=== PATIENT | female | born 1970 | race Asian ===

== ENCOUNTER → 2020-08-19 15:31 | Outpatient (BNVA) | payer OTHER, SELFPAY | PROVIDERS: PCP Internal Medicine; Visit Provider Obstetrics & Gynecology | DX: N83.202 Unspecified ovarian cyst, left side (principal); N93.9 Abnormal uterine and vaginal bleeding, unspecified | CPT/HCPCS: 99202 ==

== ENCOUNTER 2020-09-06 15:58 | Outpatient (REF) | payer OTHER, SELFPAY ==
--- NOTE | ~2020-09-06 | US_ITS ---
EXAMINATION: PELVIC ULTRASOUND CLINICAL INFORMATION: Left ovarian cyst COMPARISON: Previous exam January 2020 TECHNIQUE: Transabdominal and transvaginal pelvic ultrasound was performed. Transvaginal exam was performed for better visualization of the uterus and ovaries. FINDINGS: The uterus is anteverted and measures 11.4 x 4.6 x 6 cm in dimension. Endometrial thickness is normal measuring 1 cm. The endometrium is heterogeneous appearing. There is a 1.5 x 0.7 x 1.3 cm hyperechoic lesion in the endometrium with central vascularity questionable for an endometrial polyp. There are nabothian cysts in the cervix. The ovaries are normal-appearing. The right ovary measures 2 x 1.1 x 1.6 cm and the left ovary measures 3.4 x 1.6 x 2.2 cm. There is no fluid in the pelvis. US/US transvaginal IMPRESSION: Normal-appearing ovaries. No ovarian cyst seen. Heterogeneous endometrium with question of an endometrial polyp.
--- NOTE | ~2020-09-06 | US_ITS ---
EXAMINATION: PELVIC ULTRASOUND CLINICAL INFORMATION: Left ovarian cyst COMPARISON: Previous exam January 2020 TECHNIQUE: Transabdominal and transvaginal pelvic ultrasound was performed. Transvaginal exam was performed for better visualization of the uterus and ovaries. FINDINGS: The uterus is anteverted and measures 11.4 x 4.6 x 6 cm in dimension. Endometrial thickness is normal measuring 1 cm. The endometrium is heterogeneous appearing. There is a 1.5 x 0.7 x 1.3 cm hyperechoic lesion in the endometrium with central vascularity questionable for an endometrial polyp. There are nabothian cysts in the cervix. The ovaries are normal-appearing. The right ovary measures 2 x 1.1 x 1.6 cm and the left ovary measures 3.4 x 1.6 x 2.2 cm. There is no fluid in the pelvis. US/US pelvic complete IMPRESSION: Normal-appearing ovaries. No ovarian cyst seen. Heterogeneous endometrium with question of an endometrial polyp.
== END 2020-09-06 15:59 | disposition home or self-care (01) ==
LOC: HO.US 15:58
PROVIDERS: Visit Provider Obstetrics & Gynecology
DX: N83.202 Unspecified ovarian cyst, left side (principal)
CPT/HCPCS: 76830; 76856

== ENCOUNTER → 2020-09-14 11:10 | Outpatient (BNVA) | payer OTHER, SELFPAY | PROVIDERS: PCP Internal Medicine; Visit Provider Obstetrics & Gynecology | DX: N84.0 Polyp of corpus uteri (principal) | CPT/HCPCS: Q3014 ==

== ENCOUNTER 2021-05-26 14:34 | Outpatient (REF) | payer OTHER, SELFPAY ==
[2021-05-26 16:35] LABS: Mean Corpuscular Volume 79.2 fL (80.0-98.0); SCAN SMEAR FLAG 1
[2021-05-26 16:36] LABS: Basophils Absolute Auto 0.1 X10*3/uL (0.0-0.2); Eosinophils Absolute Auto 0.5 X10*3/uL (0.0-0.4); Eosinophils Percent Auto 6.6 % (0-4); Hematocrit 35.9 % (37.0-47.0); Hemoglobin 11.2 g/dl (12.0-16.0); Imm Gran Abs Auto 0.02 X10*3/uL (0.00-0.03); Imm Gran Pct Auto 0.2 % (0.0-0.4); Lymphocytes Absolute Auto 2.7 X10*3/uL (1.2-4.9); Lymphocytes Percent Auto 33.4 % (20-40); MANUAL DIFF FLAG SCAN; Mean Corpuscular HGB Conc 31.2 g/dl (31.0-35.0); Mean Corpuscular Hemoglobin 24.7 pg (27.0-33.0); Monocytes Absolute Auto 0.7 X10*3/uL (0.1-1.2); Monocytes Percent Auto 8.3 % (2-11); Neutrophils Absolute Auto 4.1 x10*3/uL (2.0-8.3); Neutrophils Percent Auto 50.5 % (45-73); Platelet Count 269 X10*3/uL (160-400); Red Blood Count 4.53 X10*6/uL (4.20-5.50); Red Cell Distribution Width 17.4 % (11.0-16.0); White Blood Count 8.1 X10*3/uL (4.8-10.8)
[2021-05-26 16:48] LABS: PLT ABN DIST 1
[2021-05-26 16:52] LABS: SLIDE REVIEW VERIFIED
[2021-05-26 17:00] LABS: Iron 28 mcg/dL (30-160); Percent Iron Saturation 6 % (15-50); Total Iron Binding Capacity 481 mcg/dL (228-428); Unsaturated Iron Binding 453 ug/dL
== END 2021-05-26 14:35 | disposition home or self-care (01) ==
LOC: HO.HMGCLDS 14:34
PROVIDERS: PCP Internal Medicine; Visit Provider Internal Medicine
DX: D50.9 Iron deficiency anemia, unspecified (principal)
CPT/HCPCS: 36415; 83540; 85025

== ENCOUNTER 2021-08-21 14:45 | Outpatient (REF) | payer OTHER, SELFPAY ==
[2021-08-21 17:08] LABS: Thyroid Stimulating Hormone 3.93 uIU/mL (0.32-4.0)
[2021-08-21 17:14] LABS: Basophils Absolute Auto 0.1 X10*3/uL (0.0-0.2); Eosinophils Absolute Auto 0.6 X10*3/uL (0.0-0.4); Eosinophils Percent Auto 7.9 % (0-4); Hematocrit 30.9 % (37.0-47.0); Hemoglobin 9.6 g/dl (12.0-16.0); Imm Gran Abs Auto 0.01 X10*3/uL (0.00-0.03); Imm Gran Pct Auto 0.1 % (0.0-0.4); Lymphocytes Percent Auto 28.5 % (20-40); MANUAL DIFF FLAG SCAN; Mean Corpuscular HGB Conc 31.1 g/dl (31.0-35.0); Mean Corpuscular Hemoglobin 23.4 pg (27.0-33.0); Mean Corpuscular Volume 75.4 fL (80.0-98.0); Mean Platelet Volume 11.9 fL (9.4-12.3); Monocytes Absolute Auto 0.5 X10*3/uL (0.1-1.2); Monocytes Percent Auto 6.5 % (2-11); Platelet Count 318 X10*3/uL (160-400); SCAN SMEAR FLAG 1; White Blood Count 7.1 X10*3/uL (4.8-10.8)
[2021-08-21 17:16] LABS: PLT ABN DIST 1
[2021-08-21 17:18] LABS: SLIDE REVIEW VERIFIED
== END 2021-08-21 14:46 | disposition home or self-care (01) ==
LOC: HO.HMGCLDS 14:45
PROVIDERS: PCP Internal Medicine; Visit Provider Obstetrics & Gynecology
DX: N93.8 Other specified abnormal uterine and vaginal bleeding (principal)
CPT/HCPCS: 36415; 84443; 85025

== ENCOUNTER 2022-03-03 14:29 | Outpatient (REF) | payer OTHER, SELFPAY ==
[2022-03-03 16:23] LABS: MANUAL DIFF FLAG NO
[2022-03-03 16:25] LABS: Basophils Absolute Auto 0.1 X10*3/uL (0.0-0.2); Imm Gran Abs Auto 0.02 X10*3/uL (0.00-0.03); Imm Gran Pct Auto 0.3 % (0.0-0.4); SCAN SMEAR FLAG 1
[2022-03-03 16:27] LABS: Eosinophils Absolute Auto 0.4 X10*3/uL (0.0-0.4); Eosinophils Percent Auto 6.9 % (0-4); Hematocrit 36.7 % (37.0-47.0); Hemoglobin 11.3 g/dl (12.0-16.0); Lymphocytes Absolute Auto 2.2 X10*3/uL (1.2-4.9); Lymphocytes Percent Auto 35.6 % (20-40); Mean Corpuscular HGB Conc 30.8 g/dl (31.0-35.0); Mean Corpuscular Hemoglobin 23.3 pg (27.0-33.0); Mean Corpuscular Volume 75.7 fL (80.0-98.0); Monocytes Absolute Auto 0.5 X10*3/uL (0.1-1.2); Monocytes Percent Auto 7.7 % (2-11); Neutrophils Percent Auto 48.5 % (45-73); Platelet Count 245 X10*3/uL (160-400); Red Blood Count 4.85 X10*6/uL (4.20-5.50); White Blood Count 6.2 X10*3/uL (4.8-10.8)
[2022-03-03 16:30] LABS: PLT ABN DIST 1
[2022-03-03 16:41] LABS: Iron 35 mcg/dL (30-160); Percent Iron Saturation 8 % (15-50); Total Iron Binding Capacity 450 mcg/dL (228-428); Unsaturated Iron Binding 415 ug/dL
[2022-03-03 17:04] LABS: TSH reflex Free T4 3.19 uIU/mL (0.32-4.0); Vitamin D 25-OH Total 16.3 ng/mL (>30)
[2022-03-03 17:19] LABS: Folate 17.5 ng/mL (> or = 4.0); Vitamin B12 323 pg/mL (200-900)
== END 2022-03-03 14:30 | disposition home or self-care (01) ==
LOC: HO.HMGCLDS 14:29
PROVIDERS: PCP Internal Medicine; Visit Provider Internal Medicine
DX: D50.9 Iron deficiency anemia, unspecified (principal); R53.83 Other fatigue
CPT/HCPCS: 36415; 82306; 82607; 82746; 83540; 84443; 85025

== ENCOUNTER 2022-09-17 14:27 | Outpatient (REF) | payer OTHER, SELFPAY ==
[2022-09-17 16:14] LABS: MANUAL DIFF FLAG NO
[2022-09-17 16:28] LABS: Basophils Absolute Auto 0.1 X10*3/uL (0.0-0.2); Basophils Percent Auto 0.8 % (0-2); Eosinophils Absolute Auto 0.4 X10*3/uL (0.0-0.4); Eosinophils Percent Auto 6.1 % (0-4); Hemoglobin 9.5 g/dl (12.0-16.0); Imm Gran Abs Auto 0.01 X10*3/uL (0.00-0.03); Imm Gran Pct Auto 0.2 % (0.0-0.4); Lymphocytes Absolute Auto 2.2 X10*3/uL (1.2-4.9); Lymphocytes Percent Auto 35.2 % (20-40); Mean Corpuscular HGB Conc 29.7 g/dl (31.0-35.0); Mean Corpuscular Hemoglobin 21.1 pg (27.0-33.0); Mean Platelet Volume 11.5 fL (9.4-12.3); Monocytes Absolute Auto 0.5 X10*3/uL (0.1-1.2); Monocytes Percent Auto 7.4 % (2-11); Neutrophils Absolute Auto 3.1 x10*3/uL (2.0-8.3); Neutrophils Percent Auto 50.3 % (45-73); Platelet Count 337 X10*3/uL (160-400); Red Blood Count 4.51 X10*6/uL (4.20-5.50); Red Cell Distribution Width 18.2 % (11.0-16.0); White Blood Count 6.1 X10*3/uL (4.8-10.8)
[2022-09-17 16:40] LABS: Alanine Aminotransferase 10 U/L (0-31); Aspartate Amino Transferase 13 U/L (5-31); Cholesterol 200 mg/dL; HDL Cholesterol 36 mg/dL; Iron 24 mcg/dL (30-160); LDL Cholesterol Calculated 125 mg/dl; Percent Iron Saturation 6 % (15-50); Total Iron Binding Capacity 393 mcg/dL (228-428); Triglycerides 197 mg/dL; Unsaturated Iron Binding 369 ug/dL
[2022-09-17 16:55] LABS: Vitamin D 25-OH Total 34.6 ng/mL (>30)
== END 2022-09-17 14:28 | disposition home or self-care (01) ==
LOC: HO.HMGCLDS 14:27
PROVIDERS: PCP Internal Medicine; Visit Provider Internal Medicine
DX: Z00.01 Encounter for general adult medical examination with abnormal findings (principal); D50.9 Iron deficiency anemia, unspecified; E55.9 Vitamin D deficiency, unspecified
CPT/HCPCS: 36415; 80061; 82306; 83540; 84450; 84460; 85025

== ENCOUNTER 2022-11-05 15:24 | Outpatient (REF) | payer OTHER, SELFPAY ==
--- NOTE | ~2022-11-05 | MM_ITS ---
EXAMINATION: MM SCREENING DIGITAL BREAST TOMOSYNTHESIS, BILATERAL CLINICAL INFORMATION: Screening. Asymptomatic. The lifetime risk of breast cancer based on the Tyrer-Cuzick Model is 11%. COMPARISON: Mammography: 03/17/2018, 03/07/2017, 10/06/2015 TECHNIQUE: Digital breast tomosynthesis is performed in both the craniocaudal and mediolateral oblique views along with computer-aided detection (CAD). Synthesized 2D images are generated from the tomosynthesis. FINDINGS: The breasts are heterogeneously dense, which may obscure small masses (ACR BI-RADS breast composition Category c). There are no significant masses, abnormal calcifications, or other abnormalities. Parenchymal pattern is similar to prior studies. There is no developing density or architectural abnormality. The axilla and skin contours are unremarkable. No significant changes. MM/MM tomosynthesis screening BI IMPRESSION: No mammographic evidence of malignancy. ASSESSMENT: BI-RADS 1: Negative RECOMMENDATION: Routine annual mammography screening. This patient's information was entered into a reminder system with a target due date for their next mammogram.
== END 2022-11-05 15:25 | disposition home or self-care (01) ==
LOC: HO.MAMMO 15:24
PROVIDERS: PCP Internal Medicine; Visit Provider Internal Medicine
DX: Z12.31 Encounter for screening mammogram for malignant neoplasm of breast (principal)
CPT/HCPCS: 77063; 77067

== ENCOUNTER 2023-01-01 15:01 | Outpatient (REF) | payer OTHER, SELFPAY ==
[2023-01-01 16:07] LABS: MANUAL DIFF FLAG NO
[2023-01-01 17:07] LABS: Iron 30 mcg/dL (30-160); Percent Iron Saturation 6 % (15-50); Total Iron Binding Capacity 462 mcg/dL (228-428); Unsaturated Iron Binding 432 ug/dL
[2023-01-01 17:11] LABS: Basophils Absolute Auto 0.1 X10*3/uL (0.0-0.2); Eosinophils Absolute Auto 0.4 X10*3/uL (0.0-0.4); Eosinophils Percent Auto 5.6 % (0-4); Hematocrit 33.8 % (37.0-47.0); Hemoglobin 10.1 g/dl (12.0-16.0); Imm Gran Abs Auto 0.01 X10*3/uL (0.00-0.03); Imm Gran Pct Auto 0.1 % (0.0-0.4); Lymphocytes Absolute Auto 2.2 X10*3/uL (1.2-4.9); Lymphocytes Percent Auto 32.6 % (20-40); Mean Corpuscular HGB Conc 29.9 g/dl (31.0-35.0); Mean Corpuscular Hemoglobin 21.2 pg (27.0-33.0); Mean Platelet Volume 12.5 fL (9.4-12.3); Monocytes Absolute Auto 0.4 X10*3/uL (0.1-1.2); Monocytes Percent Auto 5.9 % (2-11); Neutrophils Absolute Auto 3.7 x10*3/uL (2.0-8.3); Neutrophils Percent Auto 54.8 % (45-73); Platelet Count 331 X10*3/uL (160-400); Red Blood Count 4.76 X10*6/uL (4.20-5.50); Red Cell Distribution Width 17.7 % (11.0-16.0); White Blood Count 6.8 X10*3/uL (4.8-10.8)
== END 2023-01-01 15:02 | disposition home or self-care (01) ==
LOC: HO.HMGCLDS 15:01
PROVIDERS: PCP Internal Medicine; Visit Provider Internal Medicine
DX: D50.9 Iron deficiency anemia, unspecified (principal)
CPT/HCPCS: 36415; 83540; 85025

== ENCOUNTER 2023-05-17 14:37 | Outpatient (AMB) | payer OTHER, SELFPAY ==
[2023-05-17 15:25] VITALS: BP 120/78; PULSE 93; TEMP 36.3; O2SAT 99; BMI 27.1
--- NOTE | 2023-05-17 15:25 | AM.OFFWIN_ITS ---
Intake Vital Signs 05/17/23 15:25 Height 5 ft 3 in Weight 153 lb BMI 27.1 BP 120/78 Blood Pressure Location Rt brachial Position Sitting Pulse 93 Pulse Source Pulse Oximeter Temp 97.3 F Temp Source Temporal Artery Scan Pulse Oximetry (%) 99 Oxygen Delivery Method Room Air Intake Visit Reasons: EP, pain in tongue Intake Note: PT is here today for pain in tongue started 1 month ago Patient Tobacco Use Status: Never used Tobacco Allergies codeine Adverse Reaction (Unknown, Verified 05/17/23 15:26) Palpitations Do you need a note to return to daycare/school/sports/work: No HPI HPI Comments History of Present Illness Details This is a 53-year-old female who presents to the office today for sick visit. Patient complaining of pain and lesion of her tongue. patient states this has been going on for 1-2 months, but has been worsening. She denies any sore throat or difficulty swallowing. [facility] Medical History (Updated 08/30/22 @ 15:05 by Rose Victoria MD) Vitamin D deficiency History of abnormal uterine bleeding Right anterior knee pain Contact dermatitis Iron (Fe) deficiency anemia Dermatitis Nabothian cyst Surgical History History of hysteroscopy History of section Family History Father CVD (cardiovascular disease) Myocardial infarction Mother Diabetes mellitus Hyperlipidemia Son No problems noted. Social History Housing: Apartment Alcohol intake: never Patient Tobacco Use Status: Never used Tobacco e-Cigarette/Vaping Use: Never Used service: No Current occupational status: unemployed Gender identity: Female Cognitive needs: No Hearing needs: No Vision needs: No Review of Systems Const All systems reviewed & are unremarkable except as noted in HPI and below Reports no additional complaints Eyes Reports no additional complaints ENT Reports no additional complaints Card Reports no additional complaints Resp Reports no additional complaints GI Reports no additional complaints Reports no additional complaints Musc Reports no additional complaints Skin/Breast Reports system reviewed and no additional complaints, except as documented Neuro Reports no additional complaints Psych Reports no additional complaints Endo Reports no additional complaints Jonatan/Lymph Reports no additional complaints Aller/Immun Reports no additional complaints Physical Exam Vital Signs: Last Vital Signs Temp 97.3 F 05/17/23 15:25 Pulse 93 05/17/23 15:25 BP 120/78 05/17/23 15:25 Pulse Ox 99 05/17/23 15:25 Oxygen Delivery Method Room Air 05/17/23 15:25 BMI result Body Mass Index 27.1 Const Other: Vital signs reviewed. Constitutional: Non-toxic appearing. No acute distress. Well-developed and well-nourished. HEENT: Normocephalic and atraumatic. There is white plaque covering the entire tongue with the exception of one clear area on the tip of her tongue. Skin: Warm and dry. No rashes or lesions noted. Neck: Full and painless range of motion. No cervical lymphadenopathy. Cardio: Regular rate. No lower extremity edema. No JVD. Pulmonary: No respiratory distress. No accessory muscle usage. Gastrointestinal: Soft, nontender, and nondistended in all 4 quadrants. Musculoskeletal: Normal range of motion in joints throughout the body. No defo rmity or other signs of injury. Neuro: Alert and oriented x4. Cranial nerves 2-12 grossly intact. No focal deficits appreciated. Psych: Normal mood and affect. Assessment & Plan Assessment & Plan (1) Oral thrush: Code(s): B37.0 - Candidal stomatitis Plan: This is a 53-year-old female who presents to the office complaining of pain / lesion her tongue. Physical examination, there is a white layer covering the entirety of her tongue with the exception of a small area of clearing on the tip of her tongue. 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 She denies any inhaled steroid use. Patient sent home on nystatin swish and spit. She was instructed to follow-up here or proceed to the emergency room for persistent/ worsening symptoms. Patient verbalizes her understanding and she is in agreement with plan. Medications: New nystatin swish and swallow 1 mL PO DAILY 60 mL 0RF Coding Level of Care Code Est Pt Level 3 (38557) Diagnoses Oral thrush B37.0
== END 2023-05-17 15:42 | disposition home or self-care (01) ==
PROVIDERS: PCP Internal Medicine; Visit Provider Physician Assistant Medical
DX: B37.0 Candidal stomatitis (principal)
CPT/HCPCS: 99213

== ENCOUNTER 2023-07-02 14:33 | Outpatient (AMB) | payer OTHER, SELFPAY ==
--- NOTE | 2023-07-02 14:39 | AM.OFFWIN_ITS ---
Intake Vital Signs 07/02/23 14:42 Height 5 ft 3 in Weight 150 lb 4 oz BMI 26.6 BP 120/60 Blood Pressure Location Rt brachial Position Sitting Pulse 110 H Pulse Source Pulse Oximeter Temp 98 F Temp Source Temporal Artery Scan Oxygen Delivery Method Room Air Intake Visit Reasons: EP, cough, fever ([phone]) Intake Note: Pt is here c/o bad cough and fever. Patient Tobacco Use Status: Never used Tobacco Allergies codeine Adverse Reaction (Unknown, Verified 07/02/23 14:39) Palpitations Do you need a note to return to daycare/school/sports/work: No HPI HPI Comments History of Present Illness Details Patient is a 53-year-old female in today for a sick visit. She states that over the past 2 days she has developed symptoms of cough, headache, sore throat, chest congestion. Her at home is sick with similar symptoms. She has taken Motrin with some relief. States she had a fever of 103 degrees the night prior to this appointment. States her cough gets worse at night. Denies dizziness, chest pain, shortness a breath, numbness, vomiting, diarrhea. [facility] Medical History (Updated 07/02/23 @ 15:32 by ESTELLE Kwan) Vitamin D deficiency History of abnormal uterine bleeding Right anterior knee pain Contact dermatitis Iron (Fe) deficiency anemia Dermatitis Nabothian cyst Surgical History History of hysteroscopy History of section Family History Father CVD (cardiovascular disease) Myocardial infarction Mother Diabetes mellitus Hyperlipidemia Son No problems noted. Social History Housing: Apartment Alcohol intake: never Patient Tobacco Use Status: Never used Tobacco e-Cigarette/Vaping Use: Never Used service: No Current occupational status: unemployed Gender identity: Female Cognitive needs: No Hearing needs: No Vision needs: No Review of Systems Const Details: Constitutional : No Weight loss, Admits Fever, Admits Chills, No Fatigue, No Malaise ENT/Mouth : Admits sore throat, No Rhinorrhea Eyes: No Eye Pain, No Swelling, No Redness Cardiovascular : No Chest Pain, No SOB, No Dyspnea on Exertion, No Orthopnea, No Edema, No Palpitations Respiratory : Admits Cough, No Sputum, No Wheezing Gastrointestinal : No Nausea, No Vomiting, No Diarrhea, No Constipation, No abdominal Pain, No Hematochezia, No Melena Genitourinary : No Dysuria, No Urinary Frequency, No Hematuria, Musculoskeletal : No joint pain, No Myalgias, No Joint Swelling Skin : No Skin Lesions, No rash Neuro : No Weakness, No Numbness, No Dizziness, No Headache Psych : No Anxiety/Panic, No Depression Heme/Lymph: No Bruising, No Bleeding,No Lymphadenopathy Endocrine : No Polyuria, No Polydipsia All other systems reviewed and are negative Physical Exam Vital Signs: Last Vital Signs Temp 98 F 07/02/23 14:42 Pulse 110 H 07/02/23 14:42 BP 120/60 07/02/23 14:42 Pulse Ox 110 H 07/02/23 14:42 Oxygen Delivery Method Room Air 07/02/23 14:42 BMI result Body Mass Index 26.6 Const Other: Appearance: Alert.? Oriented X3.? No acute distress.? Head: Normocephalic, atraumatic, no step-offs or deformities Eyes: Pupils equal, round and reactive to light.? ENT: Pharynx cobblestoned.?TM intact and pearly smith. Neck: Normal inspection.? Neck supple.?Full ROM. CVS: Normal heart rate and rhythm.? Pulses normal.? Respiratory: No respiratory distress.? Breath sounds normal.? Abdomen: Soft and nontender.? Skin: Skin warm and dry.? Normal skin color.? Normal skin turgor.? Neuro: Oriented X 3.? No motor deficit.? No sensory deficit. CN 2-12 intact Results Reviewed Results Reviewed: Will call patient with x-ray results. Assessment & Plan Assessment & Plan (1) Upper respiratory infection: Comment: Patient had chest x-ray. Will get back to her with results. Will prescribe benzos on a Marie and prednisone to be taken as directed. Patient has been educated on signs of worsening symptoms and when to report back to the walk-in or when to present to the emergency room. Patient states she understands Code(s): J06.9 - Acute upper respiratory infection, unspecified Qualifiers: URI type: unspecified URI Qualified Code(s): J06.9 - Acute upper respiratory infection, unspecified Plan: Take your medications as prescribed. If you were prescribed antibiotics today, it is important that you take your medication to their entirety, do not skip any doses, do not finish them early. Follow-up with your primary care provider this week. Return to the emergency department with new or worsening symptoms. Such as fevers, chills, chest pain, shortness of breath, nausea, vomiting, dizziness, headache, vision changes, lethargy In case of emergency call 911 Plan Follow-up with PCP Orders: Orders SARS-CoV2/FLU/RSV Today J06.9 - Acute upper respiratory infection, unspecified XR chest 2V Today R50.9 - Fever, unspecified Medications: New prednisone 20 mg PO BID 10 tabs 0RF benzonatate 100 mg PO BID PRN 30 caps 0RF cough Coding Level of Care Code Est Pt Level 3 (43972) Diagnoses Upper respiratory tract infection, unspecified type J06.9 URI type: unspecified URI Time Spent (min) 20
[2023-07-02 14:42] VITALS: BP 120/60; PULSE 110; TEMP 36.6; BMI 26.6
== END 2023-07-02 16:02 | disposition home or self-care (01) ==
PROVIDERS: PCP Internal Medicine; Visit Provider Nurse Practitioner Primary Care
DX: J06.9 Acute upper respiratory infection, unspecified (principal)
CPT/HCPCS: 99213

== ENCOUNTER 2023-07-02 15:09 | Outpatient (REF) | payer OTHER, SELFPAY ==
--- NOTE | ~2023-07-02 | XR_ITS ---
EXAMINATION: XR CHEST CLINICAL INFORMATION: Fever COMPARISON: None available. TECHNIQUE: 2 views of the chest were obtained. FINDINGS: The lungs are well-expanded and clear of acute process. Heart size and pulmonary vascularity is normal. There is mild dorsal spine spondylosis. XR/XR chest 2V IMPRESSION: No acute cardiopulmonary process seen.
[2023-07-02 17:08] LABS: Influenza A PCR POSITIVE (Negative); Influenza B PCR NEGATIVE (Negative); Resp Syncy Virus RNA Qual PCR NEGATIVE (Negative); SARS COV2 PCR INHOUSE NEGATIVE (Negative)
== END 2023-07-02 15:10 | disposition home or self-care (01) ==
LOC: HO.HMGCX 15:09
PROVIDERS: PCP Internal Medicine; Visit Provider Nurse Practitioner Primary Care
DX: Z11.52 Encounter for screening for COVID-19 (principal); R05.9 Cough, unspecified; J06.9 Acute upper respiratory infection, unspecified
CPT/HCPCS: 0241U; 71046

== ENCOUNTER 2023-07-02 15:11 | Outpatient (REF) | payer OTHER, SELFPAY | END 2023-07-02 15:12 | disposition home or self-care (01) | LOC: HO.LAB 15:11 | PROVIDERS: Visit Provider Nurse Practitioner Primary Care | DX: Z13.89 Encounter for screening for other disorder (principal) ==

== ENCOUNTER 2023-10-01 14:43 | Outpatient (AMB) | payer OTHER, SELFPAY ==
[2023-10-01 14:58] VITALS: BP 118/70; PULSE 85; TEMP 36.6; O2SAT 98; BMI 26.6
--- NOTE | 2023-10-01 14:58 | AM.OFFWIN_ITS ---
Intake Vital Signs 10/01/23 14:58 Height 5 ft 3 in Weight 150 lb BMI 26.6 BP 118/70 Blood Pressure Location Lt brachial Position Sitting Pulse 85 Pulse Source Pulse Oximeter Temp 97.8 F Temp Source Oral Pulse Oximetry (%) 98 Oxygen Delivery Method Room Air Intake Visit Reasons: EP wood piece in lft foot (lobby) Intake Note: pt is here for c/o right foot toes, and had a table topper fall on it a few months ago and is still experiencing pain at night Patient Tobacco Use Status: Never used Tobacco Allergies codeine Adverse Reaction (Unknown, Verified 10/01/23 15:30) Palpitations Medication List - Last Reconciled 10/01/23 by ESTELLE Kwan ferrous fumarate (Ferretts) 325 mg PO DAILY meloxicam 15 mg PO DAILY Do you need a note to return to daycare/school/sports/work: No HPI HPI Comments History of Present Illness Details Patient is a 53-year-old female in today for a sick visit. She states that a wooden part garcia fell on her right toe 3 months prior to visit. Patient states that though she felt pain initially, it has progressively gotten worse over the past 3 months. She is able to ambulate on the affected limb. Has not tried any medication for relief. Denies tingling or numbness, pulses +2. [facility] Medical History (Updated 10/01/23 @ 15:29 by ESTELLE Kwan) Vitamin D deficiency History of abnormal uterine bleeding Right anterior knee pain Contact dermatitis Iron (Fe) deficiency anemia Dermatitis Nabothian cyst Surgical History History of hysteroscopy History of section Family History Father CVD (cardiovascular disease) Myocardial infarction Mother Diabetes mellitus Hyperlipidemia Son No problems noted. Social History Housing: Apartment Alcohol intake: never Patient Tobacco Use Status: Never used Tobacco e-Cigarette/Vaping Use: Never Used service: No Current occupational status: unemployed Gender identity: Female Cognitive needs: No Hearing needs: No Vision needs: No Review of Systems Const All systems reviewed & are unremarkable except as noted in HPI and below Musc Reports arthralgias (Right greater toe 1st metacarpal) and Denies tingling Neuro Denies tingling and Denies paresthesias Physical Exam Vital Signs: Last Vital Signs Temp 97.8 F 10/01/23 14:58 Pulse 85 10/01/23 14:58 BP 118/70 10/01/23 14:58 Pulse Ox 98 10/01/23 14:58 Oxygen Delivery Method Room Air 10/01/23 14:58 BMI result Body Mass Index 26.6 Const Other: Appearance: Alert.? Oriented X3.? No acute distress.? Head: Normocephalic, atraumatic, no step-offs or deformities CVS: Normal heart rate and rhythm.? Pulses normal.? Skin: Erythema over first right metatarsal. ? Extremities: Right greater toe pain to palpation over metatarsal and metatarsophalangeal joint. Full ROM. Neuro: Oriented X 3.? No motor deficit.? No sensory deficit. CN 2-12 intact Assessment & Plan Assessment & Plan (1) Sprain of toe, great, right: Comment: X-ray does not look like fracture on initial read. Will give patient meloxicam. Patient has been instructed to use shoes with better soles and cushion. Instructed to rest affected area. Code(s): S93.501A - Unspecified sprain of right great toe, initial encounter Qualifiers: Encounter type: initial encounter Qualified Code(s): S93.501A - Unspecified sprain of right great toe, initial encounter Plan: Take your medications as prescribed. If you were prescribed antibiotics today, it is important that you take your medication to their entirety, do not skip any doses, do not finish them early. Follow-up with your primary care provider this week. Return to the emergency department with new or worsening symptoms. Such as fevers, chills, chest pain, shortness of breath, nausea, vomiting, dizziness, headache, vision changes, lethargy In case of emergency call 911 Plan Follow-up with PCP if problem does not improve. Orders: Orders XR foot RT min 3V Today M79.671 - Pain in right foot Medications: New meloxicam 15 mg PO DAILY 10 tabs 0RF Coding Level of Care Code Est Pt Level 4 (92651) Diagnoses Sprain of right great toe, initial encounter S93.501A Encounter type: initial encounter Time Spent (min) 26
== END 2023-10-01 15:25 | disposition home or self-care (01) ==
PROVIDERS: PCP Internal Medicine; Visit Provider Nurse Practitioner Primary Care
DX: S93.501A Unspecified sprain of right great toe, initial encounter (principal)
CPT/HCPCS: 99214

== ENCOUNTER 2023-10-01 15:12 | Outpatient (REF) | payer OTHER, SELFPAY ==
--- NOTE | ~2023-10-01 | XR_ITS ---
EXAMINATION: XR FOOT, RIGHT CLINICAL INFORMATION: Pain in the right foot. COMPARISON: None available. TECHNIQUE: AP, lateral, and oblique views of the right foot. FINDINGS: No fracture. No dislocation. No focal bone lesion or periosteal reaction. Moderate joint narrowing of the first metatarsal phalangeal joint. Minor spurring of the metatarsal head of the great toe medially. Large plantar calcaneal spur. XR/XR foot RT min 3V IMPRESSION: 1. No acute abnormality. 2. Moderate degenerative change of the first metatarsophalangeal joint. 3. Large plantar calcaneal spur.
== END 2023-10-01 15:13 | disposition home or self-care (01) ==
LOC: HO.HMGCX 15:12
PROVIDERS: PCP Internal Medicine; Visit Provider Nurse Practitioner Primary Care
DX: M79.671 Pain in right foot (principal)
CPT/HCPCS: 73630

== ENCOUNTER 2023-11-12 15:06 | Outpatient (REF) | payer OTHER, SELFPAY | END 2023-11-12 15:07 | disposition home or self-care (01) | LOC: HO.MAMMO 15:06 | PROVIDERS: PCP Internal Medicine; Visit Provider Internal Medicine | DX: Z12.31 Encounter for screening mammogram for malignant neoplasm of breast (principal) | CPT/HCPCS: 77063; 77067 ==

== ENCOUNTER → 2023-11-12 15:15 | Outpatient (BNV) | payer OTHER, SELFPAY | PROVIDERS: PCP Internal Medicine; Visit Provider Radiology Diagnostic Radiology | DX: Z12.31 Encounter for screening mammogram for malignant neoplasm of breast (principal) | CPT/HCPCS: 77063; 77067 ==

== ENCOUNTER 2024-04-15 09:44 | Outpatient (AMB) | payer OTHER, SELFPAY ==
[2024-04-15 10:06] VITALS: BP 120/70; PULSE 71; O2SAT 99; BMI 26.7
--- NOTE | 2024-04-15 10:06 | A.OFFPC_ITS ---
Vital Signs 04/15/24 10:06 Height 5 ft 3 in Weight 151 lb BMI 26.7 BP 120/70 Blood Pressure Location Rt brachial Position Sitting Pulse 71 Pulse Source Pulse Oximeter Pulse Oximetry (%) 99 Oxygen Delivery Method Room Air Intake Visit Reasons: PE - see comments Intake Note: Pt is here today for her PE: Last mammogram 11/12/23 Is last menstrual period known: Yes Last menstrual period: 04/02/24 Allergies codeine Adverse Reaction (Unknown, Verified 04/15/24 10:31) Palpitations Medication List - Last Reconciled 04/15/24 by Rose Victoria MD ferrous fumarate (Ferretts) 325 mg PO DAILY Tobacco use date assessed: 04/15/24 Dental Screening Dental Screen Date: 04/15/24 Did you have a dental visit in the last 12 months?: Yes Did you have a dental problem in the last 6 months where you did not have access to dental care?: No Was dental information given to patient?: Patient has dentist HPI PE - see comments HPI Details 83-year-old lady here today for physical exam. She is up-to-date with her screening mammogram done at [facility] earlier this year with normal findings. She sees her OBGYN at [facility] for her routine Pap and pelvic exam, diagnosed to have chronic endometritis in 2021 on endometrial biopsy. Has iron deficiency anemia as noted on last lab a year ago, on ferrous fumarate [facility] Medical History (Updated 04/15/24 @ 10:57 by Rose Victoria MD) Impaired fasting glucose Hypertriglyceridemia History of chronic endometritis History of vitamin D deficiency History of abnormal uterine bleeding Contact dermatitis Iron (Fe) deficiency anemia Dermatitis Nabothian cyst Surgical History History of hysteroscopy History of section Family History Father CVD (cardiovascular disease) Myocardial infarction Mother Diabetes mellitus Hyperlipidemia Son No problems noted. Social History Housing: Apartment Alcohol intake: never Patient Tobacco Use Status: Never used Tobacco e-Cigarette/Vaping Use: Never Used service: No Current occupational status: unemployed Gender identity: Female Cognitive needs: No Hearing needs: No Vision needs: No Female Reproductive History Menstrual Date of last menstrual period: 04/02/24 Other: Goes to [facility], sees Dr. Calderon for her routine Pap and pelvic exam. Questionnaire PHQ-9 Over the last 2 weeks, how often have you been bothered by any of the following problems? 1. Little interest or pleasure in doing things: not at all 2. Feeling down, depressed, or hopeless: not at all 3. Trouble falling or staying asleep, or sleeping too much: more than half the days 4. Feeling tired or having little energy: more than half the days 5. Poor appetite or overeating: not at all 6. Feeling bad about yourself - or that you are a failure or have let yourself or your family down: not at all 7. Trouble concentrating on things, such as reading the newspaper or watching television: not at all 8. Moving or speaking so slowly that other people could have noticed. Or the opposite - being so fidgety or restless that you have been moving around a lot more than usual: not at all 9. Thoughts that you would be better off or of hurting yourself in some way: not at all Total score: 4 Depression Screening Interpretation: Negative Depression Screening Done: Yes 39226 - PHQ-9 Billing: Yes Source: Developed by Drs. Jad Baumann, Consuelo Quesada, Merritt Bello and colleagues, with an educational nathanael from [employer]. Thrive Questionnaire Date Thrive assessed: 04/15/24 I am a: Patient What is your living situation today?: I have a steady place to live Within the past 12 months, did the food you bought not last and you didn't have the money to get more?: Never true Within the past 12 months, did you worry whether your food would run out before you got money to buy more?: Never true Do you have trouble paying for medicines?: No Do you have trouble getting transportation to medical appointments?: No Do you have trouble paying your heating and electricity bill?: No Do you have trouble taking care of your child, family member or friend?: No Do you have trouble with day-to-day activities such as bathing, preparing meals, shopping, managing finances, etc.?: No Are you currently unemployed and looking for a job?: No Are you interested in more education?: Yes Please select the resources that you would like help with: Education Currently or been in a relationship where the following occur: No concerns reported THRIVE Score: 0 AUDIT C Alcohol Use Questionnaire (AUDIT-C) 1. How often do you have a drink containing alcohol?: Never Total Score: 0 SURYA-7 AMB Questionnaire SURYA-7 Date SURYA - 7 assessed: 04/15/24 Feeling nervous, anxious, or on edge: 0 = Not at all Not being able to stop or control worryin = Several days Worrying too much about different things: 1 = Several days Trouble relaxin = Several days Being so restless that it is hard to sit still: 0 = Not at all Becoming easily annoyed or irritable: 0 = Not at all Feeling afraid as if something awful might happen: 0 = Not at all Total SURYA-7 score (0-4 normal; 5-9 mild; 10-14 moderate; 15-21 severe): 3 Source: Developed by Drs. Jad Baumann, Consuelo Quesada, Merritt Bello and colleagues, with an educational nathanael from [employer]. SURYA-7 Assessment Billing SURYA-7 Assessment Tool: SURYA-7 Assessment 09458 Review of Systems Const Denies fever(s), Denies headache(s), Denies lethargy and Denies weakness Eyes Reports no additional complaints ENT Denies dizziness, Denies headache(s), Denies nasal congestion, Denies disequilibrium, Denies post nasal drip and Denies throat swelling Card Denies irregular heart rhythm and Denies dyspnea Resp Denies cough and Denies dyspnea GI Reports no additional complaints Details: She sees Dr. Calderon for her routine Pap and pelvic exam, still getting her periods but only last 3 days Reports as per HPI Musc Reports as per HPI, Denies joint swelling, Denies limited range of motion and Denies muscle weakness Skin/Breast Denies breast pain, Denies breast mass and Denies rash Neuro Denies dizziness, Denies headache(s), Denies disequilibrium and Denies weakness Psych Reports no additional complaints Endo Reports no additional complaints Jonatan/Lymph Denies easy bleeding and Denies easy bruising Aller/Immun Reports seasonal rhinorrhea and Denies throat swelling Physical exam (Primary Care) Vital Signs: Last Vital Signs Pulse 71 04/15/24 10:06 BP 120/70 04/15/24 10:06 Pulse Ox 99 04/15/24 10:06 Oxygen Delivery Method Room Air 04/15/24 10:06 BMI result Body Mass Index 26.7 Tobacco/Smoking Status: Tobacco use Status Tobacco use date assessed 04/15/24 04/15/24 10:08 Patient Tobacco Use Status Never used Tobacco 04/15/24 10:08 e-Cigarette/Vaping Use Never Used 04/15/24 10:08 PHQ-9: PHQ-9 Score PHQ-9: Total score 4 04/15/24 10:57 Depression Screening Interpretation: Negative Thrive Assessment: Date of Thrive Assessment Date Thrive assessed 04/15/24 04/15/24 10:23 Currently or been in a relationship where the following occur: No concerns reported Advance Care Planning discussion: Completed/Scanned Date of discussion: 04/15/24 Forms completed: Health Care Proxy Time spent: 16-45 minutes Actual minutes spent: 5 Const Other: alert , oriented x 3 , no acute distress , normal gait Orientation/consciousness: patient oriented x3 HENMT Head: Yes normocephalic and Yes atraumatic Ears: hearing grossly normal bilaterally, TM's normal bilaterally and EAC's normal General nose exam: Normal external nose present and No nasal discharge present Face and sinus: Yes face symmetric Mouth: Normal oral and palatal mucosa present, oropharynx normal and moist mucous membranes Eyes General: appearance normal, both eyes and all related structures Neck Neck: Yes full ROM, Yes no lymphadenopathy and Yes supple Chest Chest palpation & inspection: normal inspection of the chest Breast/axilla palpation: normal palpation of the breasts and normal palpation of the axillae Resp Effort & Inspection: normal respiratory effort and able to speak in complete sentences Auscultation: clear to auscultation bilaterally Cardio Rate: regular rate Rhythm: regular rhythm Heart sounds: S1 normal heart sound present and S2 normal heart sound present GI Inspection: Yes normal to inspection Palpation (GI): Soft to palpation, nontender and no guarding Auscultation: normal bowel sounds General: Yes no CVA tenderness and Yes deferred (Currently being seen by Dr. Calderon) Back/Spine/Pelvis Back: no CVA tenderness and No back tenderness Skin Other: Slightly raised dry hyper pigmented papule rash on right lower abdomen Neuro General: patient oriented x3, gait normal, moves all extremities, Normal light touch and pain sensation, no focal motor deficits and CN's II-XI intact bilaterally Extrem General: Yes full ROM, Yes no joint enlargement, Yes no clubbing, cyanosis or edema and Yes normal gait Psych Appearance: grossly normal and well kempt Mental Status: mental status grossly normal Speech and movement: Normal speech and movement present Affect: normal affect Attitude: cooperative Thought process: Normal thought process present Thought content: Normal thought content present Coding Level of Care Code Est Pt Prev Care 40-64y(85273) Diagnoses Annual visit for general adult medical examination with abnormal findings Z00.01 Iron (Fe) deficiency anemia D50.9 Hypertriglyceridemia E78.1 Impaired fasting glucose R73.01 Advanced directives, counseling/discussion Z71.89 Additional Codes SURYA-7 Assessment Billing - SURYA-7 Assessment Tool: SURYA-7 Assessment 88197 ([id number]) Vital Signs *Quality* - Advance Care Planning discussion: Completed/Scanned ([id number]) Vital Signs *Quality* - Time spent: 16-45 minutes ([id number]) Assessment & Plan Assessment & Plan (1) Annual visit for general adult medical examination with abnormal findings: Code(s): Z00.01 - Encounter for general adult medical examination with abnormal findings Plan: Will check appropriate labs. Recommended dental visit every 6 months and regular eye exams, at least every 2 years. Take adequate calcium in diet and vitamin-D 3 at 2000 IU per cap once a day, in addition to weight-bearing exercises to help maintain good muscle tone and weight control. Instructed to do self-breast exam, and continue to get yearly mammogram, up-to-date with her cervical cancer screening, sees Dr. Calderon at [facility]. Refused colonoscopy procedure but will get Cologuard testing for colon cancer screening. (2) Iron (Fe) deficiency anemia: Code(s): D50.9 - Iron deficiency anemia, unspecified Category: Medical Plan: Ordered CBC, iron profile and TSH with free T4. Continue with ferrous fumarate 55 mg daily. Take with orange juice for better absorption. (3) Hypertriglyceridemia: Code(s): E78.1 - Pure hyperglyceridemia Category: Medical Plan: Repeat fasting lipid panel ordered reinforced importance of following a low- cholesterol diet and getting regular exercise. (4) Impaired fasting glucose: Code(s): R73.01 - Impaired fasting glucose Category: Medical Plan: Fasting blood sugar check ordered, Your previous fasting blood sugars were elevated above 100 mg/dL. Impaired glucose metabolism increases the risk for developing diabetes mellitus type 2, as well as heart attack and stroke later on. Lifestyle changes that promotes weight loss, healthy eating habits, and regular exercise are important, and can prevent the progression to diabetes (5) Advanced directives, counseling/discussion: Code(s): Z71.89 - Other specified counseling Plan: Initiated the conversation about Advanced Directives. Advanced Directives help patients prepare for current and future decisions about their medical treatment and place of care. Discussed with patient that it is a process where a patients current condition and prognosis are reviewed, their wishes for information regarding their illness are elicited, and likely medical dilemmas are presented and options discussed. Healthcare proxy form completed today The form can be amended as needed, reviewed yearly and make changes as needed Orders: Orders Vitamin D 25-OH Total 04/15/24 D50.9 - Iron deficiency anemia, unspecified, E78.1 - Pure hyperglyceridemia, R73.01 - Impaired fasting glucose, Z00.01 - Encounter for general adult medical examination with abnormal findings Basic Metabolic Panel Fasting 04/15/24 D50.9 - Iron deficiency anemia, unspecified, E78.1 - Pure hyperglyceridemia, R73.01 - Impaired fasting glucose, Z00.01 - Encounter for general adult medical examination with abnormal findings Alanine Aminotransferase 04/15/24 D50.9 - Iron deficiency anemia, unspecified, E78.1 - Pure hyperglyceridemia, R73.01 - Impaired fasting glucose, Z00.01 - Encounter for general adult medical examination with abnormal findings Aspartate Amino Transferase 04/15/24 D50.9 - Iron deficiency anemia, unspecified, E78.1 - Pure hyperglyceridemia, R73.01 - Impaired fasting glucose, Z00.01 - Encounter for general adult medical examination with abnormal findings TSH reflex Free T4 04/15/24 D50.9 - Iron deficiency anemia, unspecified, E78.1 - Pure hyperglyceridemia, R73.01 - Impaired fasting glucose, Z00.01 - Encounter for general adult medical examination with abnormal findings Hemoglobin A1c 04/15/24 D50.9 - Iron deficiency anemia, unspecified, E78.1 - Pure hyperglyceridemia, R73.01 - Impaired fasting glucose, Z00.01 - Encounter for general adult medical examination with abnormal findings Complete Blood Count Auto Diff 04/15/24 D50.9 - Iron deficiency anemia, unspecified, E78.1 - Pure hyperglyceridemia, R73.01 - Impaired fasting glucose, Z00.01 - Encounter for general adult medical examination with abnormal findings IRON PROFILE 04/15/24 D50.9 - Iron deficiency anemia, unspecified, E78.1 - Pure hyperglyceridemia, R73.01 - Impaired fasting glucose, Z00.01 - Encounter for general adult medical examination with abnormal findings Lipid Panel 04/15/24 D50.9 - Iron deficiency anemia, unspecified, E78.1 - Pure hyperglyceridemia, R73.01 - Impaired fasting glucose, Z00.01 - Encounter for general adult medical examination with abnormal findings Referrals Cologuard Test Z12.11 - Encounter for screening for malignant neoplasm of colon, Z12.12 - Encounter for screening for malignant neoplasm of rectum
== END 2024-04-15 12:37 | disposition home or self-care (01) ==
LOC: HO.HMCC 09:44
PROVIDERS: PCP Internal Medicine; Visit Provider Internal Medicine
DX: Z00.01 Encounter for general adult medical examination with abnormal findings (principal); D50.9 Iron deficiency anemia, unspecified; E78.1 Pure hyperglyceridemia; R73.01 Impaired fasting glucose; Z71.89 Other specified counseling; Z00.00 Encounter for general adult medical examination without abnormal findings

== ENCOUNTER → 2024-04-15 09:44 | Outpatient (BNVA) | payer OTHER, SELFPAY | PROVIDERS: PCP Internal Medicine; Visit Provider Internal Medicine | DX: Z00.01 Encounter for general adult medical examination with abnormal findings (principal); D50.9 Iron deficiency anemia, unspecified; E78.1 Pure hyperglyceridemia; R73.01 Impaired fasting glucose; Z71.89 Other specified counseling | CPT/HCPCS: 96127 ==

== ENCOUNTER 2024-04-22 15:40 | Outpatient (REF) | payer OTHER, SELFPAY ==
[2024-04-23 11:29] LABS: Influenza A PCR NEGATIVE (Negative); Influenza B PCR NEGATIVE (Negative); Resp Syncy Virus RNA Qual PCR NEGATIVE (Negative); SARS COV2 PCR INHOUSE NEGATIVE (Negative)
== END 2024-04-22 15:41 | disposition home or self-care (01) ==
LOC: HO.LAB 15:40
PROVIDERS: PCP Internal Medicine; Visit Provider Physician Assistant
DX: J06.9 Acute upper respiratory infection, unspecified (principal)
CPT/HCPCS: 0241U

== ENCOUNTER → 2024-04-22 15:40 | Outpatient (AMB) | payer OTHER, SELFPAY ==
--- NOTE | 2024-04-22 16:02 | MHC.OFFWIV ---
Intake Vital Signs 04/22/24 16:04 Weight 151 lb BP 120/78 Blood Pressure Location Rt brachial Position Sitting Pulse 88 Pulse Source Pulse Oximeter Temp 98 F Temp Source Oral Pulse Oximetry (%) 98 Oxygen Delivery Method Room Air Intake Visit Reasons: EP congestion in chest, sinus congestion Intake Note: Patient here for cough, chest congestion, fever and breathing heavy. Patient Tobacco Use Status: Never used Tobacco Allergies codeine Adverse Reaction (Unknown, Verified 04/22/24 16:03) Palpitations Do you need a note to return to daycare/school/sports/work: No HPI HPI Comments History of Present Illness Details Patient is a 53-year-old female complaining of 2 days of a runny nose, chest congestion a productive cough with white sputum and some shortness of breath with exertion. She denies any head congestion, sinus pain, ear pain, fevers, shortness of breath at rest or wheezing. She is able to eat and drink normally. She did not test at home for COVID. She has been gargling using steam and taking cough drops to try to treat her symptoms. She denies a history of asthma or COPD. She tells me that she went to the hospital to visit her mother and while she was there, she did not realize it but her [id number]-[id number] and bvtsll-yx-ktk were both sick with viral upper respiratory infections and she thinks that she might have caught it from them. [facility] Medical History (Updated 04/22/24 @ 16:24 by Octavia Cavazos PA-C) Impaired fasting glucose Hypertriglyceridemia History of chronic endometritis History of vitamin D deficiency History of abnormal uterine bleeding Contact dermatitis Iron (Fe) deficiency anemia Dermatitis Nabothian cyst Surgical History History of hysteroscopy History of section Family History Father CVD (cardiovascular disease) Myocardial infarction Mother Diabetes mellitus Hyperlipidemia Son No problems noted. Social History Housing: Apartment Alcohol intake: never Patient Tobacco Use Status: Never used Tobacco e-Cigarette/Vaping Use: Never Used service: No Current occupational status: unemployed Gender identity: Female Cognitive needs: No Hearing needs: No Vision needs: No Review of Systems Const All systems reviewed & are unremarkable except as noted in HPI and below Physical Exam Vital Signs: Last Vital Signs Temp 98 F 04/22/24 16:04 Pulse 88 04/22/24 16:04 BP 120/78 04/22/24 16:04 Pulse Ox 98 04/22/24 16:04 Oxygen Delivery Method Room Air 04/22/24 16:04 Const General: cooperative, healthy appearing, comfortable and no acute distress Orientation/consciousness: patient oriented x3 Limitations: no limitations HEENT Head: Yes normal to inspection Ears: hearing grossly normal bilaterally, external ears normal and TM's normal bilaterally General nose exam: Normal external nose present, Normal nares present and No nasal discharge present Face and sinus: Yes normal facial exam and Yes sinuses nontender Mouth: Normal oral and palatal mucosa present and moist mucous membranes Throat: Yes tonsils normal, Yes uvula midline and Yes posterior oropharynx abnormal (Erythema) Eyes General: appearance normal, both eyes and all related structures Neck Neck: Yes normal visual inspection Resp Effort & Inspection: normal respiratory effort, able to speak in complete sentences, Actively coughing, no respiratory distress, not tachypneic, no tripod positioning and no use of accessory muscles Auscultation: clear to auscultation bilaterally Cardio Rate: regular rate Rhythm: regular rhythm Heart sounds: normal S1 and S2 Skin General skin exam: no rashes or lesions noted Neuro General: patient oriented x3 Extrem General: Yes normal to inspection and Yes no clubbing, cyanosis or edema Assessment & Plan Assessment & Plan (1) Upper respiratory infection: Code(s): J06.9 - Acute upper respiratory infection, unspecified Qualifiers: URI type: unspecified URI Qualified Code(s): J06.9 - Acute upper respiratory infection, unspecified Plan: Vital signs are stable, patient is well-appearing her lung sounds were clear, no indication for a chest x-ray. I did tested for flu COVID and RSV. And I will send Catherineanivijaya Lanny to her pharmacy. Patient is also asking if I can send some allergy pills so I sent a 1 month supply. Plan See above Orders: Orders SARS-CoV2/FLU/RSV Today J06.9 - Acute upper respiratory infection, unspecified Medications: New benzonatate 200 mg PO TID PRN 14 caps 0RF cough levocetirizine (Xyzal) 5 mg PO DAILY 30 tabs 0RF Coding Level of Care Code Est Pt Level 3 (56492) Diagnoses Upper respiratory tract infection, unspecified type J06.9 URI type: unspecified URI
[2024-04-22 16:04] VITALS: BP 120/78; PULSE 88; TEMP 36.6; O2SAT 98
== END ==
PROVIDERS: PCP Internal Medicine; Visit Provider Physician Assistant
DX: J06.9 Acute upper respiratory infection, unspecified (principal)

== ENCOUNTER 2024-04-30 14:50 | Outpatient (REF) | payer OTHER, SELFPAY ==
[2024-04-30 16:23] LABS: Basophils Absolute Auto 0.1 X10*3/uL (0.0-0.2); Basophils Percent Auto 0.8 % (0-2); Eosinophils Absolute Auto 0.2 X10*3/uL (0.0-0.4); Hematocrit 33.2 % (37.0-47.0); Hemoglobin 10.2 g/dl (12.0-16.0); Imm Gran Abs Auto 0.03 X10*3/uL (0.00-0.03); Imm Gran Pct Auto 0.5 % (0.0-0.4); Lymphocytes Absolute Auto 2.2 X10*3/uL (1.2-4.9); Lymphocytes Percent Auto 35.4 % (20-40); MANUAL DIFF FLAG SCAN; Mean Corpuscular HGB Conc 30.7 g/dl (31.0-35.0); Mean Corpuscular Hemoglobin 21.9 pg (27.0-33.0); Mean Corpuscular Volume 71.2 fL (80.0-98.0); Monocytes Absolute Auto 0.5 X10*3/uL (0.1-1.2); Monocytes Percent Auto 7.5 % (2-11); Neutrophils Absolute Auto 3.3 x10*3/uL (2.0-8.3); Neutrophils Percent Auto 52.8 % (45-73); Platelet Count 323 X10*3/uL (160-400); Red Blood Count 4.66 X10*6/uL (4.20-5.50); Red Cell Distribution Width 18.1 % (11.0-16.0); SCAN SMEAR FLAG 1; White Blood Count 6.2 X10*3/uL (4.8-10.8)
[2024-04-30 16:25] LABS: PLT ABN DIST 1
[2024-04-30 16:36] LABS: Estimated Average Glucose 126 mg/dL; Hemoglobin A1C 111.3918 umol/L; Total Hemoglobin (HGBA1C) 2643.2457 umol/L
[2024-04-30 17:24] LABS: SLIDE REVIEW VERIFIED
[2024-04-30 18:44] LABS: Alanine Aminotransferase 11 U/L (0-31); Anion Gap 10 (12-20); Aspartate Amino Transferase 16 U/L (5-31); Blood Urea Nitrogen 12 mg/dL (9-16); Calcium 8.7 mg/dL (8.4-10.2); Carbon Dioxide 25 mmol/L (22-29); Chloride 107 mmol/L (96-108); Cholesterol 201 mg/dL (<200); Estimated Glomerular Filt Rate > 60; Glucose Fasting 116 mg/dL (60-99); HDL Cholesterol 40 mg/dL (>40); Iron 28 mcg/dL (30-160); LDL Cholesterol Calculated 129 mg/dL (<100); Percent Iron Saturation 8 % (15-50); Sodium 138 mmol/L (135-145); Total Iron Binding Capacity 365 mcg/dL (228-428); Triglycerides 163 mg/dL (<150); Unsaturated Iron Binding 337 ug/dL
[2024-04-30 19:05] LABS: TSH reflex Free T4 3.26 uIU/mL (0.32-4.0); Vitamin D 25-OH Total 30.2 ng/mL (>30)
== END 2024-04-30 14:51 | disposition home or self-care (01) ==
LOC: HO.HMGCLDS 14:50
PROVIDERS: PCP Internal Medicine; Visit Provider Internal Medicine
DX: Z00.01 Encounter for general adult medical examination with abnormal findings (principal); R73.01 Impaired fasting glucose; E78.1 Pure hyperglyceridemia; D50.9 Iron deficiency anemia, unspecified
CPT/HCPCS: 36415; 80048; 80061; 82306; 83036; 83540; 84443; 84450; 84460; 85025

== ENCOUNTER 2024-10-26 15:57 | Outpatient (AMB) | payer OTHER, SELFPAY ==
--- OUTSIDE RECORDS SUMMARY | 2024-10-26 15:59 | XMS_ITS | Patient Health Record ---
Author Organization [facility] Address [address] [place] [address] Care Team Providers Care Dean Of Student Services Name Role Phone DANIEL COLINDRES Primary Care Provider PIA Carpenter Unavailable [phone] Allergies No Known Allergies Reason For Referral No Information Medications Medication SIG (Take, Route, Frequency, Duration) Notes Start Date End Date Status Mary Esther-3 Fish oil 2000 mg Active Fluocinonide 0.1 % 1 application Externally Once a day for 15 days 01/17/2023 Active Ferretts 325 (106 Fe) MG 1 tablet Orally Three times a Week Active Tacrolimus 0.1 % 1 application Externally Once a day for 30 days 01/17/2023 Active Vitamin D3 1.25 MG (24022 UT) 1 capsule Orally Active Tacrolimus 0.1 % 1 application Externally Once a day for 30 day(s) Active Fluocinonide 0.1 % 1 application Externally Once a day Active Social History Tobacco Use: Social History Observation Description Date Details (start date - stop date) Never Smoker NA - NA Smoking: Question Answer Notes Are you a: nonsmoker Problems Problem Type SNOMED Code ICD Code Onset Dates Problem Status W/U Status Risk Notes Problem Allergic rhinitis (58268434) Other allergic rhinitis (J30.89) Active confirmed Problem Eruption of skin (538080977) Rash and other nonspecific skin eruption (R21) Active confirmed Plan Of Treatment No Information Insurance Providers Payer Name Payer Address Payer Phone Subscriber Number Group Number Insured Name Patient Relationship to Insured Coverage Start Date Coverage End Date [facility] [address] [place] [id number] FINA ALBARADO Self - patient is the insured Medical (General) History Medical History History ICD Code low iron deficiency anemia Surgical History Surgery Date(Month/Year) Uterine polyp removal 10/2021
--- NOTE | 2024-10-26 16:00 | AM.OFFWIN_ITS ---
Intake Vital Signs 10/26/24 16:01 Weight 154 lb BP 116/70 Blood Pressure Location Rt brachial Position Sitting Pulse 82 Pulse Source Pulse Oximeter Pulse Oximetry (%) 99 Oxygen Delivery Method Room Air Intake Visit Reasons: EP mouth sores under the tongue Intake Note: Patient here for mouth sore in mouth that started about 2 days ago. Patient Tobacco Use Status: Never used Tobacco Allergies codeine Adverse Reaction (Unknown, Verified 10/26/24 16:02) Palpitations Do you need a note to return to daycare/school/sports/work: No HPI HPI Comments History of Present Illness Details History of Present Illness - The patient is a 54 year old female pr esenting with a mouth ulcer - She developed a sore in the mouth two to three days earlier, potentially due to a cut, resulting in pain and fever with tmax 99.9F. - Persistent pain despite warm saltwater gargling, folic acid, and Tylenol usage. - Examination revealed a painful ulcer o n the left side of the tongue, hampering speech and eating. - Recurrent episodes reported, possibly associated with nighttime tongue biting. - Previous dental intervention with a [facility] guard was uncomfortable and ineffective for the patient. - Denies any swelling in the throat. Physical Exam General: Cooperative, healthy appearing, comfortable, no acute distress and well developed Orientation: Patient oriented x3 Limitations: No limitations Head: Normal to inspection Ears: Hearing grossly normal bilaterally Nose: Normal External nose present Face and sinus: Normal facial exam Mouth: normal oral mucosa, tongue has a small ulcer on left lateral side, no tongue swelling, posterior oropharynx is normal, teeth are normal appearing. Eyes: Appearance normal, both eyes and all related structures Neck: Normal visual inspection and Yes full ROM Respiratory: Normal respiratory effort and able to speak in complete sentences. Skin: No rashes or lesions noted Neuro: Patient oriented x3 Extremities: Normal to inspection [facility] Medical History (Updated 10/26/24 @ 16:22 by Octavia Cavazos PA-C) Impaired fasting glucose Hypertriglyceridemia History of chronic endometritis History of vitamin D deficiency History of abnormal uterine bleeding Contact dermatitis Iron (Fe) deficiency anemia Dermatitis Nabothian cyst Surgical History History of hysteroscopy History of section Family History Father CVD (cardiovascular disease) Myocardial infarction Mother Diabetes mellitus Hyperlipidemia Son No problems noted. Social History Housing: Apartment Alcohol intake: never Patient Tobacco Use Status: Never used Tobacco e-Cigarette/Vaping Use: Never Used service: No Current occupational status: unemployed Gender identity: Female Cognitive needs: No Hearing needs: No Vision needs: No Review of Systems Const All systems reviewed & are unremarkable except as noted in HPI and below Physical Exam Vital Signs: Last Vital Signs Pulse 82 10/26/24 16:01 BP 116/70 10/26/24 16:01 Pulse Ox 99 10/26/24 16:01 Oxygen Delivery Method Room Air 10/26/24 16:01 Assessment & Plan Assessment & Plan (1) Aphthous ulcer: Code(s): K12.0 - Recurrent oral aphthae Plan: The management for aphthous stomatitis involves prescribing a dexamethasone oral elixir swish to reduce inflammation and pain, to be used three times daily or increased to four times if pain persists at night. This aims to provide symptomatic relief and hasten ulcer resolution. The patient is encouraged to use sour candies to aid healing. The medication has been prescribed to the local [facility]. Supportive care with warm saltwater gargling is advised between doses. No antibiotics are required as there are no signs of infection. The patient should observe for changes in symptoms, with follow-up advised if symptoms do not improve or worsen. Patient was informed and verbally consented to the use of an ambient scribe for clinic note documentation during this visit. Medications: New dexamethasone 0.5 mg (5 mL) PO TID PRN 237 mL 0RF mouth pain Coding Level of Care Code Est Pt Level 3 (42359) Diagnoses Aphthous ulcer K12.0
[2024-10-26 16:01] VITALS: BP 116/70; PULSE 82; O2SAT 99
== END 2024-10-26 16:26 | disposition home or self-care (01) ==
PROVIDERS: PCP Internal Medicine; Visit Provider Physician Assistant
DX: K12.0 Recurrent oral aphthae (principal)

== ENCOUNTER → 2024-10-26 15:57 | Outpatient (BNVA) | payer OTHER, SELFPAY | PROVIDERS: PCP Internal Medicine; Visit Provider Physician Assistant ==

== ENCOUNTER → 2024-11-17 15:00 | Outpatient (BNV) | payer OTHER, SELFPAY | PROVIDERS: PCP Internal Medicine; Visit Provider Internal Medicine | DX: Z12.31 Encounter for screening mammogram for malignant neoplasm of breast (principal) | CPT/HCPCS: 77063; 77067 ==

== ENCOUNTER 2024-11-17 15:02 | Outpatient (REF) | payer OTHER, SELFPAY ==
--- OUTSIDE RECORDS SUMMARY | 2024-11-17 16:42 | XMS_ITS | Patient Health Record ---
Author Organization [facility] Address [address] [place] [address] Care Team Providers Care Wincher Name Role Phone DANIEL COLINDRES Primary Care Provider PIA Carpenter Unavailable [phone] Allergies No Known Allergies Reason For Referral No Information Medications Medication SIG (Take, Route, Frequency, Duration) Notes Start Date End Date Status [place]-3 Fish oil 2000 mg Active Fluocinonide 0.1 % 1 application Externally Once a day for 15 days 01/17/2023 Active Ferretts 325 (106 Fe) MG 1 tablet Orally Three times a Week Active Tacrolimus 0.1 % 1 application Externally Once a day for 30 days 01/17/2023 Active Vitamin D3 1.25 MG (16101 UT) 1 capsule Orally Active Tacrolimus 0.1 [...] Problem Status W/U Status Risk Notes Problem Other allergic rhinitis (J30.89) Active confirmed Problem Eruption of skin (519638243) Rash and other nonspecific skin eruption (R21) Active confirmed Plan Of Treatment No Information Insurance Providers Payer Name Payer Address Payer Phone Subscriber Number Group Number Insured Name Patient Relationship to Insured Coverage Start Date Coverage End Date [facility] [address] [place] [place] [id number] FINA ALBARADO Self - patient is the insured Medical (General) History Medical History History ICD Code low iron deficiency anemia Surgical History Surgery Date(Month/Year) Uterine polyp removal 10/2021
== END 2024-11-17 15:03 | disposition home or self-care (01) ==
LOC: HO.MAMMO 15:02
PROVIDERS: PCP Internal Medicine; Visit Provider Internal Medicine
DX: Z12.31 Encounter for screening mammogram for malignant neoplasm of breast (principal)
CPT/HCPCS: 77063; 77067

== ENCOUNTER 2024-12-07 16:06 | Outpatient (REF) | payer OTHER, SELFPAY | END 2024-12-07 16:07 | disposition home or self-care (01) | LOC: HO.LAB 16:06 | PROVIDERS: PCP Internal Medicine; Visit Provider Nurse Practitioner Family | DX: Z13.89 Encounter for screening for other disorder (principal) ==

== ENCOUNTER 2024-12-07 16:06 | Outpatient (AMB) | payer OTHER, SELFPAY ==
--- NOTE | 2024-12-07 16:11 | MHC.OFFWIV ---
Intake Vital Signs 12/07/24 16:13 Height 5 ft 3 in Weight 150 lb 2 oz BMI 26.6 BP 114/70 Pulse 98 Pulse Source Pulse Oximeter Temp 98.6 F Temp Source Oral Pulse Oximetry (%) 96 Intake Visit Reasons: EP coughing, fever, chest congestion & pain Patient Tobacco Use Status: Never used Tobacco Sql Server Consultant Required: No Allergies codeine Adverse Reaction (Unknown, Verified 10/26/24 16:02) Palpitations Do you need a note to return to daycare/school/sports/work: No HPI HPI Comments History of Present Illness Details 54 y/o Female Patient who presents to the walk in clinic with c/o Acute URI symptoms since Saturday. Pt c/o Cough, chest congestion, Nasal congestion and subjective fevers. Pt had a Bid gathering/Green Party at her house last week and some people had URI symptoms. [facility] Medical History (Updated 12/07/24 @ 16:22 by Sylvia Garcia NP) Acute respiratory disease Impaired fasting glucose Hypertriglyceridemia History of chronic endometritis History of vitamin D deficiency History of abnormal uterine bleeding Contact dermatitis Iron (Fe) deficiency anemia Dermatitis Nabothian cyst Surgical History History of hysteroscopy History of section Family History Father CVD (cardiovascular disease) Myocardial infarction Mother Diabetes mellitus Hyperlipidemia Son No problems noted. Social History Housing: Apartment Alcohol intake: never Patient Tobacco Use Status: Never used Tobacco e-Cigarette/Vaping Use: Never Used service: No Current occupational status: unemployed Gender identity: Female Cognitive needs: No Hearing needs: No Vision needs: No Review of Systems Const All systems reviewed & are unremarkable except as noted in HPI and below Physical Exam Vital Signs: Last Vital Signs Temp 98.6 F 12/07/24 16:13 Pulse 98 12/07/24 16:13 BP 114/70 12/07/24 16:13 Pulse Ox 96 12/07/24 16:13 BMI result Body Mass Index 26.6 Const General: no acute distress Nutritional Appearance: well nourished Orientation/consciousness: patient oriented x3 HEENT Head: Yes normocephalic Ears: external ears normal and TM abnormal bulging and with fluid behind the TM bilateral General nose exam: Nasal discharge present Face and sinus: Yes sinuses nontender Mouth: moist mucous membranes Throat: Yes uvula midline and Yes abnormal tonsil (Enlarged Tonsils +2) Resp Effort & Inspection: normal respiratory effort, able to speak in complete sentences, no audible wheezes and Actively coughing Auscultation: clear to auscultation bilaterally, no crackles, no rales, no rhonchi and no wheezes Cardio Heart sounds: S1 normal heart sound present and S2 normal heart sound present Neuro General: patient oriented x3 Assessment & Plan Assessment & Plan (1) Acute respiratory disease: Code(s): J06.9 - Acute upper respiratory infection, unspecified Plan: Ordered SARs Ordered Z-pack, cough medicine Acetaminophen for pain and fever relief OTC cough remedies. Rest and hydrate well with warm fluids. Orders: Orders SARS-CoV2/FLU/RSV Today J06.9 - Acute upper respiratory infection, unspecified Medications: New dextromethorphan polistirex ER (Delsy 12 hour) 10 mL PO Q12H 89 mL 0RF cough J06.9 - Acute upper respiratory infection, unspecified azithromycin 500 mg PO DAILY 3 tabs 0RF cough 3 days J06.9 - Acute upper respiratory infection, unspecified benzonatate 100 mg PO BID 60 caps 0RF cough J06.9 - Acute upper respiratory infection, unspecified Coding Level of Care Code Est Pt Level 4 (11690) Diagnoses Acute respiratory disease J06.9 Time Spent (min) 20
[2024-12-07 16:13] VITALS: BP 114/70; PULSE 98; TEMP 37; O2SAT 96; BMI 26.6
--- OUTSIDE RECORDS SUMMARY | 2024-12-07 17:29 | XMS_ITS | Patient Health Record ---
Author Organization [facility] Address [address] [place] [address] Care Team Providers Care In Shop Service Technician Name Role Phone DANIEL COLINDRES Primary Care Provider PIA Carpenter Unavailable [phone] Allergies No Known Allergies Reason For Referral No Information Medications Medication SIG (Take, Route, Frequency, Duration) Notes Start Date End Date Status [place]-3 Fish oil 2000 mg Active Fluocinonide 0.1 % 1 application Externally Once a day for 15 days 01/17/2023 Active Ferretts 325 (106 Fe) MG 1 tablet Orally Three times a Week Active Tacrolimus 0.1 % 1 application Externally Once a day for 30 days 01/17/2023 Active Vitamin D3 1.25 MG (67176 UT) 1 capsule Orally Active Tacrolimus 0.1 [...] (J30.89) Active confirmed Problem Eruption of skin ([id number]) Rash and other nonspecific skin eruption (R21) Active confirmed Plan Of Treatment No Information Insurance Providers Payer Name Payer Address Payer Phone Subscriber Number Group Number Insured Name Patient Relationship to Insured Coverage Start Date Coverage End Date [facility] [address] [place] [id number] FINA ALBARADO Self - patient is the insured Medical (General) History Medical History History ICD Code low iron deficiency anemia Surgical History Surgery Date(Month/Year) Uterine polyp removal 10/2021
== END 2024-12-07 16:29 | disposition home or self-care (01) ==
PROVIDERS: PCP Internal Medicine; Visit Provider Nurse Practitioner Family
DX: J06.9 Acute upper respiratory infection, unspecified (principal)

== ENCOUNTER 2024-12-08 10:26 | Outpatient (REF) | payer OTHER, SELFPAY ==
[2024-12-08 11:21] LABS: Influenza A PCR NEGATIVE (Negative); Influenza B PCR NEGATIVE (Negative); Resp Syncy Virus RNA Qual PCR NEGATIVE (Negative); SARS COV2 PCR INHOUSE NEGATIVE (Negative)
--- OUTSIDE RECORDS SUMMARY | 2024-12-08 11:38 | XMS_ITS | Patient Health Record ---
Author Organization [facility] Address [address] [place] [address] Care Team Providers Care Automotive Mechanic Name Role Phone DANIEL COLINDRES Primary Care Provider PIA Carpenter Unavailable [phone] Allergies No Known Allergies Reason For Referral No Information Medications Medication SIG (Take, Route, Frequency, Duration) Notes Start Date End Date Status [place]-3 Fish oil 2000 mg Active Fluocinonide 0.1 % 1 application Externally Once a day for 15 days 01/17/2023 Active Ferretts 325 (106 Fe) MG 1 tablet Orally Three times a Week Active Tacrolimus 0.1 % 1 application Externally Once a day for 30 days 01/17/2023 Active Vitamin D3 1.25 MG (41733 UT) 1 capsule Orally Active Tacrolimus 0.1 [...] (J30.89) Active confirmed Problem Eruption of skin ([id number]) Rash and other nonspecific skin eruption (R21) Active confirmed Plan Of Treatment No Information Insurance Providers Payer Name Payer Address Payer Phone Subscriber Number Group Number Insured Name Patient Relationship to Insured Coverage Start Date Coverage End Date [facility] [address] [place] [id number] FINA ALBARADO Self - patient is the insured Medical (General) History Medical History History ICD Code low iron deficiency anemia Surgical History Surgery Date(Month/Year) Uterine polyp removal 10/2021
== END 2024-12-08 10:27 | disposition home or self-care (01) ==
LOC: HO.LNP 10:26
PROVIDERS: Visit Provider Nurse Practitioner Family
DX: J06.9 Acute upper respiratory infection, unspecified (principal)
CPT/HCPCS: 0241U

== ENCOUNTER 2024-12-23 15:27 | Outpatient (REF) | payer OTHER, SELFPAY ==
--- NOTE | ~2024-12-23 | XR_ITS ---
EXAMINATION: XR CHEST CLINICAL INFORMATION: R05.9 - Cough, unspecified COMPARISON: 07/02/2023. TECHNIQUE: 2 views of the chest were obtained. FINDINGS: The cardiac, hilar, and mediastinal contours are normal. The lungs are clear bilaterally. There is no pneumothorax or pleural effusion. There is no focal osseous or soft tissue abnormality. XR/XR chest 2V IMPRESSION: No active pulmonary disease. Electronically signed by: Lucas Villaseñor MD 12/23/2024 04:00 PM EDT
== END 2024-12-23 15:28 | disposition home or self-care (01) ==
LOC: HO.HMGCX 15:27
PROVIDERS: PCP Internal Medicine; Visit Provider Physician Assistant Medical
DX: R05.1 Acute cough (principal)
CPT/HCPCS: 71046

== ENCOUNTER 2024-12-23 15:27 | Outpatient (AMB) | payer OTHER, SELFPAY ==
[2024-12-23 15:28] VITALS: BP 108/66; PULSE 94; TEMP 36.7; O2SAT 98; BMI 26.6
--- NOTE | 2024-12-23 15:28 | AM.OFFWIN_ITS ---
Intake Vital Signs 12/23/24 15:28 Height 5 ft 3 in Weight 150 lb BMI 26.6 BP 108/66 Blood Pressure Location Lt brachial Position Sitting Pulse 94 Pulse Source Pulse Oximeter Temp 98.1 F Temp Source Oral Pulse Oximetry (%) 98 Oxygen Delivery Method Room Air Intake Visit Reasons: EP Cough, congestion, Weak, fever Intake Note: here for chest congestion, chest pain, chest heaviness, non productive cough, body weakness, low grade fever for a couple weeks Patient Tobacco Use Status: Never used Tobacco Allergies codeine Adverse Reaction (Unknown, Verified 12/23/24 15:34) Palpitations Do you need a note to return to daycare/school/sports/work: No HPI HPI Comments History of Present Illness Details History - The patient is a 54-year-old female pr esenting with persistent cough and chest pain. - The patient reports a history of a vir al infection contracted at a libertarian two weeks ago, leading to persistent cough and chest pain. - Initial symptoms included coughing and congestion. - She was seen here in the clinic and gi eliz cough medicine - The patient was prescribed a Z-Hermes but did not use it due to lack of fever at the time as she was told by the provider who saw her. - Current symptoms include persistent co ugh, chest heaviness, and shortness of breath, with a recent fever of 99.4?F at night. - The patient has used cough medicine, s team inhalation, and Tylenol for symptom management. - She wants a chest x-ray today. - She denies chills, CP, SOB, abd pain, n/v/d. Physical Exam General: Cooperative, healthy appearing, comfortable and no acute distress Orientation/consciousness: Patient oriented x3 Ears: Hearing grossly normal bilaterally, external ears normal and TM's normal bilaterally Nose: Normal external nose present, normal nares present, and no nasal discharge present. Face and sinus: Sinuses nontender to palpation. Mouth: Normal oral and palatal mucosa present and moist mucous membranes noted. Throat: Tonsils normal. Uvula is midline. Posterior oropharynx with erythema and no exudates. Eyes: Appearance normal, both eyes and all related structures Neck: Normal visual inspection, full ROM. No lymphadenopathy noted. Respiratory: Clear to auscultation bilaterally. Normal respiratory effort, able to speak in complete sentences. No respiratory distress, not tachypneic, no tripod positioning and no use of accessory muscles. Patient reports chest heaviness and shortness of breath. Cardiovascular: Regular rate and rhythm. Normal S1 and S2 Skin: No rashes or lesions noted Patient was informed and verbally consented to the use of an ambient scribe for clinic note documentation during this visit [facility] Medical History (Updated 12/07/24 @ 16:22 by Sylvia Garcia NP) Acute respiratory disease Impaired fasting glucose Hypertriglyceridemia History of chronic endometritis History of vitamin D deficiency History of abnormal uterine bleeding Contact dermatitis Iron (Fe) deficiency anemia Dermatitis Nabothian cyst Surgical History History of hysteroscopy History of section Family History Father CVD (cardiovascular disease) Myocardial infarction Mother Diabetes mellitus Hyperlipidemia Son No problems noted. Social History Housing: Apartment Alcohol intake: never Patient Tobacco Use Status: Never used Tobacco e-Cigarette/Vaping Use: Never Used service: No Current occupational status: unemployed Gender identity: Female Cognitive needs: No Hearing needs: No Vision needs: No Review of Systems Const All systems reviewed & are unremarkable except as noted in HPI and below Physical Exam Vital Signs: Last Vital Signs Temp 98.1 F 12/23/24 15:28 Pulse 94 12/23/24 15:28 BP 108/66 12/23/24 15:28 Pulse Ox 98 12/23/24 15:28 Oxygen Delivery Method Room Air 12/23/24 15:28 BMI result Body Mass Index 26.6 Assessment & Plan Assessment & Plan (1) Cough: Code(s): R05.9 - Cough, unspecified Qualifiers: Cough type: acute Qualified Code(s): R05.1 - Acute cough Plan Most likely URI vs bronchitis vs viral illness vs CAP Plan - A chest x-ray will be performed to rule out any significant pathology. - Initiation of a Z-Hermes is recommended to address potential bacterial supe rinfection. - A steroid medication will be prescribed to alleviate the cough. - Continue with cough medicine as prescribed - Drink fluids and diet as tolerated - Follow up with PCP if no better. Orders: Orders XR chest 2V Today R05.9 - Cough, unspecified Medications: New prednisone 40 mg (2 x 20 mg) PO DAILY 10 tabs 0RF 5 days Coding Level of Care Code Est Pt Level 4 (26974) Diagnoses Acute cough R05.1 Cough type: acute
--- OUTSIDE RECORDS SUMMARY | 2024-12-23 15:35 | XMS_ITS | Patient Health Record ---
Author Organization [facility] Address [address] [place] [address] Care Team Providers Care Intensive Care Ambulance Paramedic Name Role Phone DANIEL COLINDRES Primary Care Provider PIA Carpenter Unavailable [phone] Allergies No Known Allergies Reason For Referral No Information Medications Medication SIG (Take, Route, Frequency, Duration) Notes Start Date End Date Status [place]-3 Fish oil 2000 mg Active Fluocinonide 0.1 % 1 application Externally Once a day for 15 days 01/17/2023 Active Ferretts 325 (106 Fe) MG 1 tablet Orally Three times a Week Active Tacrolimus 0.1 % 1 application Externally Once a day for 30 days 01/17/2023 Active Vitamin D3 1.25 MG (14120 UT) 1 capsule Orally Active Tacrolimus 0.1 [...] W/U Status Risk Notes Problem Allergic rhinitis (47325307) Other allergic rhinitis (J30.89) Active confirmed Problem Eruption of skin (902727842) Rash and other nonspecific skin eruption (R21) Active confirmed Plan Of Treatment No Information Insurance Providers Payer Name Payer Address Payer Phone Subscriber Number Group Number Insured Name Patient Relationship to Insured Coverage Start Date Coverage End Date [facility] [address] [place] [id number] FINA ALBARADO Self - patient is the insured Medical (General) History Medical History History ICD Code low iron deficiency anemia Surgical History Surgery Date(Month/Year) Uterine polyp removal 10/2021
== END 2024-12-23 15:59 | disposition home or self-care (01) ==
PROVIDERS: PCP Internal Medicine; Visit Provider Physician Assistant Medical
DX: R05.1 Acute cough (principal)

== ENCOUNTER → 2024-12-23 15:48 | Outpatient (BNV) | payer OTHER, SELFPAY | PROVIDERS: PCP Internal Medicine; Visit Provider Radiology Diagnostic Radiology | DX: R05.9 Cough, unspecified (principal) | CPT/HCPCS: 71046 ==

== ENCOUNTER 2025-01-13 15:29 | Outpatient (REF) | payer OTHER, SELFPAY ==
--- OUTSIDE RECORDS SUMMARY | 2025-01-14 11:03 | XMS_ITS | Patient Health Record ---
Author Organization [facility] Address [address] [place] [address] Care Team Providers Care Manager Video Name Role Phone DANIEL COLINDRES Primary Care Provider PIA Carpenter Unavailable [phone] Allergies No Known Allergies Reason For Referral No Information Medications Medication SIG (Take, Route, Frequency, Duration) Notes Start Date End Date Status [place]-3 Fish oil 2000 mg Active Fluocinonide 0.1 % 1 application Externally Once a day; Duration: 15 days 01/17/2023 Active Ferretts 325 (106 Fe) MG 1 tablet Orally Three times a Week Active Tacrolimus 0.1 % 1 application Externally Once a day; Duration: 30 days 01/17/2023 Active Vitamin D3 1.25 MG (22753 UT) 1 capsule Orally Active Tacrolimus 0.1 [...] W/U Status Risk Notes Problem Allergic rhinitis (02330968) Other allergic rhinitis (J30.89) Active confirmed Problem Rash and other nonspecific skin eruption (R21) Active confirmed Plan Of Treatment No Information Insurance Providers Payer Name Payer Address Payer Phone Subscriber Number Group Number Insured Name Patient Relationship to Insured Coverage Start Date Coverage End Date [facility] [address] [place] [address] [id number] FINA ALBARADO Self - patient is the insured Medical (General) History Medical History History ICD Code low iron deficiency anemia Surgical History Surgery Date(Month/Year) Uterine polyp removal 10/2021
--- OUTSIDE RECORDS SUMMARY | 2025-01-14 11:03 | XMS_ITS | Clinical Summary ---
Author Organization [facility] Address [address] [place] [address] Phone Care Team Providers Care Semiconductors Wafer Breaker Name Role Phone Rose Victoria MD Primary [...] Insurance [facility] Care Teams Semiconductors Wafer Breaker Relationship Specialty Start Date End Date Rose Victoria MD [address] [place] [address] PCP - General Internal Medicine 06/21/22 Additional Source Comments The information contained in this document represents components of the legal health record. It is not the complete legal health record.[facility]
[2025-01-14 11:08] LABS: Resp Syncy Virus RNA Qual PCR NEGATIVE (Negative); SARS COV2 PCR INHOUSE POSITIVE (Negative)
== END 2025-01-13 15:30 | disposition home or self-care (01) ==
LOC: HO.LNP 15:29
PROVIDERS: PCP Internal Medicine; Visit Provider Physician Assistant Medical
DX: R09.89 Other specified symptoms and signs involving the circulatory and respiratory systems (principal); J06.9 Acute upper respiratory infection, unspecified; R05.9 Cough, unspecified; R53.1 Weakness; Z79.51 Long term (current) use of inhaled steroids; Z79.899 Other long term (current) drug therapy
CPT/HCPCS: 87637

== ENCOUNTER 2025-01-13 15:29 | Outpatient (AMB) | payer OTHER, SELFPAY ==
[2025-01-13 15:42] VITALS: BP 118/70; PULSE 92; TEMP 36.8; O2SAT 99; BMI 26.6
--- NOTE | 2025-01-13 15:42 | AM.OFFWIN_ITS ---
Intake Vital Signs 01/13/25 15:42 Height 5 ft 3 in Weight 150 lb BMI 26.6 BP 118/70 Blood Pressure Location Lt brachial Position Sitting Pulse 92 Pulse Source Pulse Oximeter Temp 98.3 F Temp Source Oral Pulse Oximetry (%) 99 Oxygen Delivery Method Room Air Intake Visit Reasons: EP fever, cold, chills, cough Intake Note: pt presents with weakness, fever, body chills, coughing and runny nose. states family members recently dx w/ covid Patient Tobacco Use Status: Never used Tobacco Allergies codeine Adverse Reaction (Unknown, Verified 01/13/25 15:44) Palpitations Medication List - Last Reconciled 01/13/25 by Martine Aponte PA-C albuterol sulfate 90 mcg/actuation 2 puffs inhalation Q6H PRN cetirizine-pseudoephedrine 5-120 mg ER 1 tab PO BID 7 days dextromethorphan polistirex ER (Delsym 12 hour) 10 mL PO Q12H PRN ferrous fumarate (Ferretts) 325 mg PO DAILY fluticasone propionate 50 mcg/actuation 1 spray intranasal Q12H Do you need a note to return to daycare/school/sports/work: No HPI HPI Comments History of Present Illness Details History - The patient is a 54-year-old female pr esenting with fever and concerns about possible COVID-19 infection. - Fever began last night, reaching 100?F , and was managed with Tylenol. - Previous viral infection treated with azithromycin, steroids, and cough medicine, with a negative chest x-ray. - Current symptoms include fever, cough, and no ear pain or sore throat. - Family history of COVID-19 exposure fr om a sister. - Reports occasional breathing difficult y, when she coughs. - She denies CP, SOB, abd pain, n/v/d, o r JONES. Physical Exam General: Cooperative, healthy appearing, comfortable and no acute distress Orientation/consciousness: Patient oriented x3 Limitations: No limitations Head: Normal to inspection Ears: Hearing grossly normal bilaterally, external ears normal and TM's normal bilaterally Nose: Normal external nose present, normal nares present, and no nasal discharge present. Face and sinus: Sinuses nontender to palpation. Mouth: Normal oral and palatal mucosa present and moist mucous membranes noted. Throat: Tonsils normal. Uvula is midline. Posterior oropharynx with erythema and no exudates. Eyes: Appearance normal, both eyes and all related structures Neck: Normal visual inspection, full ROM. No lymphadenopathy noted. Respiratory: Clear to auscultation bilaterally. Normal respiratory effort, able to speak in complete sentences. No respiratory distress, not tachypneic, no tripod positioning and no use of accessory muscles. Cardiovascular: Regular rate and rhythm. Normal S1 and S2 Skin: No rashes or lesions noted Patient was informed and verbally consented to the use of an ambient scribe for clinic note documentation during this visit [facility] Medical History (Updated 12/07/24 @ 16:22 by Sylvia Garcia NP) Acute respiratory disease Impaired fasting glucose Hypertriglyceridemia History of chronic endometritis History of vitamin D deficiency History of abnormal uterine bleeding Contact dermatitis Iron (Fe) deficiency anemia Dermatitis Nabothian cyst Surgical History History of hysteroscopy History of section Family History Father CVD (cardiovascular disease) Myocardial infarction Mother Diabetes mellitus Hyperlipidemia Son No problems noted. Social History Housing: Apartment Alcohol intake: never Patient Tobacco Use Status: Never used Tobacco e-Cigarette/Vaping Use: Never Used service: No Current occupational status: unemployed Gender identity: Female Cognitive needs: No Hearing needs: No Vision needs: No Review of Systems Const All systems reviewed & are unremarkable except as noted in HPI and below Physical Exam Vital Signs: Last Vital Signs Temp 98.3 F 01/13/25 15:42 Pulse 92 01/13/25 15:42 BP 118/70 01/13/25 15:42 Pulse Ox 99 01/13/25 15:42 Oxygen Delivery Method Room Air 01/13/25 15:42 BMI result Body Mass Index 26.6 Assessment & Plan Assessment & Plan (1) URI with cough and congestion: Code(s): J06.9 - Acute upper respiratory infection, unspecified Plan Most likely URI vs covid vs flu vs RSV vs viral illness Plan - COVID-19 testing was conducted to confirm or rule out infection. - Prescribed flonase, zyrtec D and tessalon perles for the cough - Prescribed an albuterol inhaler for breathing difficulty and potential cough. - Advised continuation of Tylenol for fever management. - Await results for COVID-19, flu, and RSV tests, with follow-up communication planned. - VSS, pt well appearing Orders: Orders SARS-CoV2/FLU/RSV Today R09.89 - Other specified symptoms and signs involving the circulatory and respiratory systems Medications: New fluticasone propionate 50 mcg/actuation administer into each nostril 1 spray intranasal Q12H 16 grams 0RF cetirizine-pseudoephedrine 5-120 mg ER 1 tab PO BID 14 tabs 0RF 7 days albuterol sulfate 90 mcg/actuation 2 puffs inhalation Q6H PRN 8.5 grams 0RF shortness of breath or wheezing or cough Coding Level of Care Code Est Pt Level 4 (29944) Diagnoses URI with cough and congestion J06.9
--- OUTSIDE RECORDS SUMMARY | 2025-01-13 16:10 | XMS_ITS | Patient Health Record ---
Author Organization [facility] Address [address] [place] [address] Care Team Providers Care Plane Captain Name Role Phone DANIEL COLINDRES Primary Care Provider PIA Carpenter Unavailable [phone] Allergies No Known Allergies Reason For Referral No Information Medications Medication SIG (Take, Route, Frequency, Duration) Notes Start Date End Date Status [place]-3 Fish oil 2000 mg Active Fluocinonide 0.1 % 1 application Externally Once a day; Duration: 15 days 01/17/2023 Active Ferretts 325 (106 Fe) MG 1 tablet Orally Three times a Week Active Tacrolimus 0.1 % 1 application Externally Once a day; Duration: 30 days 01/17/2023 Active Vitamin D3 1.25 MG (71543 UT) 1 capsule Orally Active Tacrolimus 0.1 % 1 application Externally Once a day; Duration: 30 day(s) Active Fluocinonide 0.1 % 1 application Externally Once a day Active Social History Tobacco Use: Social History Observation Description Date Details (start date - stop date) Never Smoker NA - NA Smoking: Question Answer Notes Are you a: nonsmoker Problems Problem Type SNOMED Code ICD Code Onset Dates Problem Status W/U Status Risk Notes Problem Allergic rhinitis (15047828) Other allergic rhinitis (J30.89) Active confirmed Problem Eruption of skin (339100711) Rash and other nonspecific skin eruption (R21) Active confirmed Plan Of Treatment No Information Insurance Providers Payer Name Payer Address Payer Phone Subscriber Number Group Number Insured Name Patient Relationship to Insured Coverage Start Date Coverage End Date [facility] [address] [place] [id number] FIAN ALBARADO Self - patient is the insured Medical (General) History Medical History History ICD Code low iron deficiency anemia Surgical History Surgery Date(Month/Year) Uterine polyp removal 10/2021
--- OUTSIDE RECORDS SUMMARY | 2025-01-13 16:10 | XMS_ITS | Clinical Summary ---
Author Organization [facility] Address [address] [place] [address] Phone Care Team Providers Care Senior Private Client Advisor Name Role Phone Rose Victoria MD Primary Care Provider Social History Tobacco Use Types Packs/Day Years Used Date Smoking Tobacco: Never Assessed Education Answer Date Recorded Are you interested in more education? Not on eileen e 10/13/2022 Are you concerned about learning? Not on file 10/13/2022 No 10/13/2022 No 10/13/2022 Digital Access Answer Date Recorded No 11/13/2022 No 11/13/2022 Reliable internet access at home? Not on file 11/13/2022 Device with a working camera? Not on file Comments Unknown Sex and Gender Information Value Date Recorded Sex Assigned at Female 11/20/2022 11:29 PM EDT Legal Sex Female 1:25 PM EST Gender Identity Female 11/20/2022 11:29 PM EDT Sexual Orientation Straight 11/20/2022 11 :29 PM EDT Plan of Treatment Health Maintenance Due Date Last Done Comments Adult Td,Tdap Booster 1970 LIPID PANEL 1970 DEPRESSION SCREENING 1982 SMOKING Hx and SMOKELESS TOBACCO SCREENING 1983 HEPATITIS C SCREENING 1988 HIV ONE-TIME SCREENING (18-6 5 YEARS) 1988 PAP SMEAR 1991 MAMMOGRAM 2010 COLOGUARD 2015 COLONOSCOPY 2015 COLORECTAL CANCER SCREENING 2015 FIT TEST 2015 FOBT 2015 SIGMOIDOSCOPY 2015 VIRTUAL COLONOSCOPY 2015 PNEUMOCOCCAL VACCINES (50+ years) (1 of 1 - PCV) 2020 ZOSTER VACCINES (1 of 2) 2020 COVID-19 VACCINE (3 - 2023-2 5 season) 2024 11/12/2020, 10/22/2020 HEPATITIS A VACCINES Aged Out No long er eligible based on patient's age to complete this topic HIB VACCINES Aged Out No longer eligi ble based on patient's age to complete this topic MENINGOCOCCAL VACCINES (ACWY) Aged Out No longer eligible based on patient's age to complete this topic MENINGOCOCCAL VACCINES (B) Aged Out N o longer eligible based on patient's age to complete this topic Medical Devices Not on file Insurance [facility] [place] Address: [address] [address] Care Teams Senior Private Client Advisor Relationship Specialty Start Date End Date Rose Victoria MD [address] [place] [address] PCP - General Internal Medicine 06/21/22 Additional Source Comments The information contained in this document represents components of the legal health record. It is not the complete legal health record.[facility]
== END 2025-01-13 16:18 | disposition home or self-care (01) ==
PROVIDERS: PCP Internal Medicine; Visit Provider Physician Assistant Medical
DX: J06.9 Acute upper respiratory infection, unspecified (principal)

== ENCOUNTER 2025-02-26 15:45 | Outpatient (AMB) | payer OTHER, SELFPAY ==
--- NOTE | 2025-02-26 15:54 | MHC.OFFWIV ---
Intake Vital Signs 02/26/25 15:56 Height 5 ft 3 in Weight 150 lb BMI 26.6 BP 116/58 L Blood Pressure Location Rt brachial Position Sitting Pulse 84 Pulse Source Pulse Oximeter Temp 98.6 F Temp Source Oral Pulse Oximetry (%) 99 Oxygen Delivery Method Room Air Intake Visit Reasons: EP bilat arm pain Intake Note: pt presents with bilateral shoulder pain radiating down arms and to fingers where fingers are very cold and numb- states pain started at right antecubital fossa Patient Tobacco Use Status: Never used Tobacco Allergies codeine Adverse Reaction (Unknown, Verified 02/26/25 15:58) Palpitations HPI HPI Comments History of Present Illness Details This is a 54-year-old female presenting for evaluation of pain in her right upper extremity that she first felt on Saturday. Patient states that she will have intermittent discomfort from her posterior neck down to her right forearm. Patient denies having any injury or trauma preceding the onset of her symptoms. Patient states that she will occasionally feel that her fingers on her right hand are cold at night, since last , but are not cold at this time. Patient states that her pain is achy in nature and is worse with activity like cooking or vacuuming. Patient is [id number]. She has not taken any medication for treatment of this discomfort. [facility] Medical History (Updated 02/26/25 @ 16:30 by Laney Norwood PA-C) Acute respiratory disease Impaired fasting glucose Hypertriglyceridemia History of chronic endometritis History of vitamin D deficiency History of abnormal uterine bleeding Contact dermatitis Iron (Fe) deficiency anemia Dermatitis Nabothian cyst Surgical History History of hysteroscopy History of section Family History Father CVD (cardiovascular disease) Myocardial infarction Mother Diabetes mellitus Hyperlipidemia Son No problems noted. Social History Housing: Apartment Alcohol intake: never Patient Tobacco Use Status: Never used Tobacco e-Cigarette/Vaping Use: Never Used service: No Current occupational status: unemployed Gender identity: Female Cognitive needs: No Hearing needs: No Vision needs: No Review of Systems Const All systems reviewed & are unremarkable except as noted in HPI and below Denies chills, Denies fatigue and Denies fever(s) Eyes Reports no additional complaints ENT Reports no additional complaints Card Reports no additional complaints Resp Reports no additional complaints GI Reports no additional complaints Reports no additional complaints Musc Details: pain radiating from neck to right forearm, achy in nature, intermittent Skin/Breast Reports system reviewed and no additional complaints, except as documented Neuro Reports no additional complaints Psych Reports no additional complaints Endo Reports no additional complaints and Denies fatigue Physical Exam Vital Signs: Last Vital Signs Temp 98.6 F 02/26/25 15:56 Pulse 84 02/26/25 15:56 BP 116/58 L 02/26/25 15:56 Pulse Ox 99 02/26/25 15:56 Oxygen Delivery Method Room Air 02/26/25 15:56 BMI result Body Mass Index 26.6 Const General: cooperative, healthy appearing, comfortable, no acute distress, well developed, alert, awake and Physically active Nutritional Appearance: average body habitus Orientation/consciousness: patient oriented x3 Limitations: no limitations Cardio Rate: regular rate Rhythm: regular rhythm Back/Spine/Pelvis Cervical Spine: normal cervical lordosis, cervical ROM normal, No cervical muscular tenderness, No pain with cervical ROM, No cervical spasm and No Cervical spine tenderness Skin Other: No rashes, lesions, erythema or other cutaneous findings noted on the right upper extremity. General skin exam: no rashes or lesions noted Neuro General: patient oriented x3 Extrem Right upper extremity: normal to inspection, full ROM, normal capillary refill, shoulder/upper arm Details: normal ROM; no tenderness and no swelling, elbow/forearm, wrist Details: normal ROM; no tenderness and no swelling and Extremity exam: right hand Details: normal to inspection, normal capillary refill, neuromotor exam normal and neurosensory exam normal; no cyanosis, no edema and joint enlargement noted Psych Appearance: grossly normal Mental Status: mental status grossly normal Insight: Good insight present (Psych) Judgement: Good judgement present (Psych) Assessment & Plan Assessment & Plan (1) Right arm pain: Comment: Patient is evaluated. She is in no acute distress. Patient has no pain on evaluation and ROM intact throughout her right upper extremity. Patient points to her right antecubital fossa and states that this is where the pain will occur, however is not present on examination. Imaging deferred at this time. Code(s): M79.601 - Pain in right arm Plan: Patient will be prescribed Naprosyn to take twice daily as needed if her pain recurs. Patient is invited to return at any time for re-evaluation. Medications: New naproxen (Naprosyn) 500 mg PO BID 20 tabs 0RF Coding Level of Care Code Est Pt Level 3 (99048) Diagnoses Right arm pain M79.601 Time Spent (min) 20
[2025-02-26 15:56] VITALS: BP 116/58; PULSE 84; TEMP 37; O2SAT 99; BMI 26.6
--- OUTSIDE RECORDS SUMMARY | 2025-02-26 17:46 | XMS_ITS | Clinical Summary ---
Author Organization [facility] Address [address] [place] [address] Phone Care Team Providers Care Fashion Consultant Name Role Phone Rose Victoria MD Primary [...] 2020 ZOSTER VACCINES (1 of 2) 2020 INFLUENZA VACCINE (#1) 2025 COVID-19 VACCINE (3 - 2024-2 6 season) 2025 11/12/2020, 10/22/2020 HEPATITIS A VACCINES Aged Out [...] topic Medical Devices Not on file Insurance [facility] [place] Address: [place] [address] [facility] Care Teams Fashion Consultant Relationship Specialty Start Date End Date Rose Victoria MD [address] [place] [address] PCP - General Internal Medicine 06/21/22 Additional Source Comments The information contained in this document represents components of the legal health record. It is not the complete legal health record.[facility]
--- OUTSIDE RECORDS SUMMARY | 2025-02-26 17:46 | XMS_ITS | Patient Health Record ---
Author Organization [facility] Address [address] [place] [address] Care Team Providers Care Cd Reactor Operator Head Name Role Phone DANIEL COLINDRES Primary Care Provider PIA Carpenter Unavailable [phone] Allergies No Known Allergies Reason For Referral No Information Medications Medication SIG (Take, Route, Frequency, Duration) Notes Start Date End Date Status [place]-3 Fish oil 2000 mg Active Fluocinonide 0.1 % 1 application Externally Once a day; Duration: 15 days 01/17/2023 Active Ferretts 325 (106 Fe) MG 1 tablet Orally Three times a Week Active Tacrolimus 0.1 % 1 application Externally Once a day; Duration: 30 days 01/17/2023 Active Vitamin D3 1.25 MG (97260 UT) 1 capsule Orally Active Tacrolimus 0.1 [...] W/U Status Risk Notes Problem Allergic rhinitis (49502794) Other allergic rhinitis (J30.89) Active confirmed Problem Eruption of skin (818920672) Rash and other nonspecific skin eruption (R21) Active confirmed Plan Of Treatment No Information Insurance Providers Payer Name Payer Address Payer Phone Subscriber Number Group Number Insured Name Patient Relationship to Insured Coverage Start Date Coverage End Date [facility] [address] [place] [id number] FINA ALBARADO Self - patient is the insured Medical (General) History Medical History History ICD Code low iron deficiency anemia Surgical History Surgery Date(Month/Year) Uterine polyp removal 10/2021
== END 2025-02-26 16:26 | disposition home or self-care (01) ==
LOC: HO.HMCWIC 15:45
PROVIDERS: PCP Internal Medicine
DX: M79.601 Pain in right arm (principal)

== ENCOUNTER 2025-03-02 14:24 | Outpatient (REF) | payer OTHER, SELFPAY ==
[2025-03-02 16:20] LABS: MANUAL DIFF FLAG NO
[2025-03-02 16:41] LABS: Hematocrit 29.2 % (37.0-47.0); Hemoglobin 8.8 g/dl (12.0-16.0); Imm Gran Abs Auto 0.02 X10*3/uL (0.00-0.03); Imm Gran Pct Auto 0.3 % (0.0-0.4); Lymphocytes Absolute Auto 1.9 X10*3/uL (1.2-4.9); Mean Corpuscular HGB Conc 30.1 g/dl (31.0-35.0); Mean Corpuscular Hemoglobin 19.5 pg (27.0-33.0); Mean Corpuscular Volume 64.6 fL (80.0-98.0); NRBC Abs Auto 0.000 X10*3/uL (0.0-0.012); NRBC Pct Auto 0.0 /100WBC (0.0-0.2); Platelet Count 343 X10*3/uL (160-400); Red Blood Count 4.52 X10*6/uL (4.20-5.50); White Blood Count 6.7 X10*3/uL (4.8-10.8)
[2025-03-02 16:54] LABS: Alanine Aminotransferase 15 U/L (0-31); Anion Gap 11 (12-20); Aspartate Amino Transferase 19 U/L (5-31); Blood Urea Nitrogen 11 mg/dL (9-16); Calcium 9.2 mg/dL (8.4-10.2); Carbon Dioxide 21 mmol/L (22-29); Chloride 111 mmol/L (96-108); Cholesterol 194 mg/dL (<200); Estimated Glomerular Filt Rate > 60; HDL Cholesterol 43 mg/dL (>40); Iron 27 mcg/dL (30-160); Percent Iron Saturation 6 % (15-50); Potassium 4.0 mmol/L (3.3-5.1); Sodium 139 mmol/L (135-145); Total Iron Binding Capacity 417 mcg/dL (228-428); Triglycerides 122 mg/dL (<150); Unsaturated Iron Binding 390 ug/dL
[2025-03-02 17:13] LABS: Folate 14.0 ng/mL (> or = 4.0); Vitamin B12 458 pg/mL (200-900)
[2025-03-02 17:17] LABS: Ferritin 4 ng/mL (10-250)
--- OUTSIDE RECORDS SUMMARY | 2025-03-02 18:08 | XMS_ITS | Patient Health Record ---
Author Organization [facility] Address [address] [place] [address] Care Team Providers Care Personalized Living Manager Nurse Name Role Phone DANIEL COLINDRES Primary Care Provider PIA Carpenter Unavailable [phone] Allergies No Known Allergies Reason For Referral No Information Medications Medication SIG (Take, Route, Frequency, Duration) Notes Start Date End Date Status [place]-3 Fish oil 2000 mg Active Fluocinonide 0.1 % 1 application Externally Once a day; Duration: 15 days 01/17/2023 Active Ferretts 325 (106 Fe) MG 1 tablet Orally Three times a Week Active Tacrolimus 0.1 % 1 application Externally Once a day; Duration: 30 days 01/17/2023 Active Vitamin D3 1.25 MG (09091 UT) 1 capsule Orally Active Tacrolimus 0.1 [...] W/U Status Risk Notes Problem Allergic rhinitis (29644849) Other allergic rhinitis (J30.89) Active confirmed Problem Eruption of skin (024820258) Rash and other nonspecific skin eruption (R21) Active confirmed Plan Of Treatment No Information Insurance Providers Payer Name Payer Address Payer Phone Subscriber Number Group Number Insured Name Patient Relationship to Insured Coverage Start Date Coverage End Date [facility] [address] [place] [address] [id number] FINA ALBARADO Self - patient is the insured Medical (General) History Medical History History ICD Code low iron deficiency anemia Surgical History Surgery Date(Month/Year) Uterine polyp removal 10/2021
--- OUTSIDE RECORDS SUMMARY | 2025-03-02 18:08 | XMS_ITS | Clinical Summary ---
Author Organization [facility] Address [address] [place] [address] Phone Care Team Providers Care Rug Hooker Name Role Phone Rose Victoria MD Primary [...] topic Medical Devices Not on file Insurance [facility] [place] Address: [place] [address] [facility] Care Teams Rug Hooker Relationship Specialty Start Date End Date Rose Victoria MD [address] [place] [address] PCP - General Internal Medicine 06/21/22 Additional Source Comments The information contained in this document represents components of the legal health record. It is not the complete legal health record.[facility]
[2025-03-02 18:50] LABS: Free T4 (Free Thyroxine) 0.88 ng/dL (0.71-1.85)
== END 2025-03-02 14:25 | disposition home or self-care (01) ==
LOC: HO.HMGCLDS 14:24
PROVIDERS: PCP Internal Medicine; Visit Provider Internal Medicine
DX: E78.1 Pure hyperglyceridemia (principal); R73.01 Impaired fasting glucose; D50.9 Iron deficiency anemia, unspecified; M79.603 Pain in arm, unspecified; R20.9 Unspecified disturbances of skin sensation
CPT/HCPCS: 36415; 80048; 80061; 82306; 82607; 82728; 82746; 83540; 84207; 84439; 84443; 84450; 84460; 85025

== ENCOUNTER 2025-04-08 13:22 | Outpatient (REF) | payer OTHER, SELFPAY ==
--- NOTE | ~2025-04-08 | US_ITS ---
EXAMINATION: MM DIAGNOSTIC DIGITAL BREAST TOMOSYNTHESIS, RIGHT Right limited ultrasound. CLINICAL INFORMATION: Back from screening for asymmetry in the superior right breast on MLO view. COMPARISON: Mammography: Prior's on PACS. TECHNIQUE: Digital breast tomosynthesis is performed in both the craniocaudal and mediolateral oblique views along with computer-aided detection (CAD). Synthesized 2D images are generated from the tomosynthesis. FINDINGS: The breasts are heterogeneously dense, which may obscure small masses. Asymmetry superior right breast on MLO view middle depth persists on additional imaging projections as a circumscribed oval mass. No suspicious calcifications or other abnormal findings. Targeted color Doppler ultrasound demonstrates a hypoechoic oval probable minimally complicated cyst at 10:00 4 7 m from the nipple in the right breast measuring 10 x 7 x 8 mm this is a probable correlate for the circumscribed oval mass on mammography. Additionally there is a hypoechoic oval circumscribed probable minimally complicated cyst at 12:00 recent admission nipple measuring 6 x 4 x 7 mm. There is no internal vascular flow. US/US Breast RT Limited Mamm Only IMPRESSION: Probable complicated cysts at 10 and 12:00 on ultrasound. Recommend 6 month follow-up ultrasound to further evaluate stability. ASSESSMENT: BI-RADS Category 3: Probably benign RECOMMENDATION: 6 Month F/U Results were provided to the patient at time of visit by the technologist. This patient's information was entered into a reminder system with a target due date for their next mammogram. Electronically signed by: Anat Awad DO 04/08/2025 02:41 PM EDT
--- OUTSIDE RECORDS SUMMARY | 2025-04-08 16:57 | XMS_ITS | Clinical Summary ---
Author Organization [facility] Address [address] [place] [address] Phone Care Team Providers Care Parking Worker Name Role Phone Rose Victoria MD Primary [...] - 2024-2 6 season) 2025 11/12/2020, 10/22/2020 RSV VACCINE (1 - 1-dose 75+ series) 2045 HEPATITIS A VACCINES Aged Out No long [...] topic Medical Devices Not on file Insurance [facility] Member Subscriber Plan / Payer (Ef fective 2022-Present) Name:Tonie Correa Relation to Subscriber:Self Name:Tonie Correa Payer ID:Not on file Type:HMO Address: [place] [id number] [facility] Member Subscriber Plan / Payer (Ef fective 2022-) Name:Tonie Correa Relation to Subscriber:Self Name:Tonie Correa Payer ID:Not on file Type:HMO Address: [address] [place] [address] [facility] Member Subscriber Plan / Payer (Ef fective 2022-) Name:Tonie Correa Relation to Subscriber:Self Name:Tonie Correa Payer ID:Not on file Type:HMO Address: [address] [facility] Member Subscriber Plan / Payer (Ef fective 2022-Present) Name:Tonie Correa Relation to Subscriber:Self Name:Tonie Correa Payer ID:Not on file Type:O Address: [place] [id number] [facility] Care Teams Parking Worker Relationship Specialty Start Date End Date Rose Victoria MD [address] [place] [address] PCP - General Internal Medicine 06/21/22 Additional Source Comments The information contained in this document represents components of the legal health record. It is not the complete legal health record.[facility]
--- OUTSIDE RECORDS SUMMARY | 2025-04-08 16:57 | XMS_ITS | Patient Health Record ---
Author Organization [facility] Address [address] [place] [address] Care Team Providers Care Trench Digging Machine Operator Name Role Phone DANIEL COLINDRES Primary Care Provider PIA Carpenter Unavailable [phone] Allergies No Known Allergies Reason For Referral No Information Medications Medication SIG (Take, Route, Frequency, Duration) Notes Start Date End Date Status Columbiana-3 Fish oil 2000 mg Active Fluocinonide 0.1 % 1 application Externally Once a day; Duration: 15 days 01/17/2023 Active Ferretts 325 (106 Fe) MG 1 tablet Orally Three times a Week Active Tacrolimus 0.1 % 1 application Externally Once a day; Duration: 30 days 01/17/2023 Active Vitamin D3 1.25 MG (29272 UT) 1 capsule Orally Active Tacrolimus 0.1 [...] W/U Status Risk Notes Problem Allergic rhinitis (82097769) Other allergic rhinitis (J30.89) Active confirmed Problem Eruption of skin (850517644) Rash and other nonspecific skin eruption (R21) Active confirmed Plan Of Treatment No Information Insurance Providers Payer Name Payer Address Payer Phone Subscriber Number Group Number Insured Name Patient Relationship to Insured Coverage Start Date Coverage End Date [facility] [address] [place] [id number] FINA ALBARADO Self - patient is the insured Medical (General) History Medical History History ICD Code low iron deficiency anemia Surgical History Surgery Date(Month/Year) Uterine polyp removal 10/2021
== END 2025-04-08 13:23 | disposition home or self-care (01) ==
LOC: HO.MAMMO 13:22
PROVIDERS: PCP Internal Medicine; Visit Provider Internal Medicine
DX: N64.89 Other specified disorders of breast (principal)
CPT/HCPCS: 76642; 77061; 77065

== ENCOUNTER → 2025-04-08 13:30 | Outpatient (BNV) | payer OTHER, SELFPAY | PROVIDERS: PCP Internal Medicine; Visit Provider Internal Medicine | DX: R92.8 Other abnormal and inconclusive findings on diagnostic imaging of breast (principal) | CPT/HCPCS: 76642; 77061; 77065 ==

== ENCOUNTER 2025-04-19 15:55 | Outpatient (AMB) | payer OTHER, SELFPAY ==
[2025-04-19 16:30] VITALS: BP 124/70; PULSE 87; RESP 16; TEMP 36.7; O2SAT 98; BMI 26.4
--- NOTE | 2025-04-19 16:30 | MHC.PC.OV ---
Vital Signs 04/19/25 16:30 Height 5 ft 3 in Weight 149 lb BMI 26.4 BP 124/70 Blood Pressure Location Rt brachial Position Sitting Respiration 16 Pulse 87 Pulse Source Pulse Oximeter Temp 98.1 F Temp Source Oral Pulse Oximetry (%) 98 Oxygen Delivery Method Room Air Intake Visit Reasons: Annual PE Intake Note: Pt is here today for her PE: Last mammogram 04/08/25 Development Representative Required: No Allergies codeine Adverse Reaction (Unknown, Verified 04/19/25 16:45) Palpitations Medication List - Last Reconciled 04/19/25 by Rose Victoria MD ferrous fumarate (Ferretts) 325 mg PO DAILY 3 months multivitamin 1 tab PO DAILY Tobacco use date assessed: 04/19/25 Dental Screening Dental Screen Date: 04/19/25 Did you have a dental visit in the last 12 months?: Yes Did you have a dental problem in the last 6 months where you did not have access to dental care?: No Was dental information given to patient?: Patient has dentist HPI Annual PE HPI Details 54-year-old lady with a history of iron-deficiency anemia, hypertriglyceridemia, impaired fasting glucose, here today for her physical exam She is up-to-date with her breast cancer screening, with mammogram last done 04/08/2025 with negative findings She has a history of heavy menstrual bleeding. She underwent surgery for uterine polyps, which was expected to resolve the bleeding, but it persists. A trial of control pills was not effective. She is anemic and is supposed to take iron supplements, but reports inconsistent use. Her hemoglobin has dropped significantly to 8.5, compared to 11.3 in 2019. She reports associated symptoms including depression, weakness, shortness of breath, cold extremities, and pica, specifically a desire to chew ice. Regarding her gynecological history, she is followed by Dr. Calderon. A biopsy revealed endometrial changes and an enlarged polyp. She is experiencing perimenopausal symptoms such as hot flashes at night, and her last menstrual period was March 12. The patient reports significant psychosocial stress due to caring for sick family members, which contributes to feelings of depression and social isolation. Has been having difficulty sleeping most days, which contributes to her increased fatigue. Recent Lab reveals low vitamin D and a slightly elevated TSH with a normal free T4. She is up-to-date with her screening mammogram, which came back with benign findings. Never had colon cancer screening. Cologuard testing ordered last year was never done, patient declines to have any testing for colon cancer done at present time. [facility] Medical History (Updated 04/25/25 @ 04:46 by Rose Victoria MD) Menorrhagia with irregular cycle Iron deficiency anemia due to chronic blood loss Impaired fasting glucose Hypertriglyceridemia History of chronic endometritis History of abnormal uterine bleeding Contact dermatitis Dermatitis Nabothian cyst Surgical History History of hysteroscopy History of section Family History Father CVD (cardiovascular disease) Myocardial infarction Mother Diabetes mellitus Hyperlipidemia Son No problems noted. Social History Housing: Apartment Alcohol intake: never Patient Tobacco Use Status: Never used Tobacco e-Cigarette/Vaping Use: Never Used service: No Current occupational status: unemployed Gender identity: Female Cognitive needs: No Hearing needs: No Vision needs: No Questionnaire PHQ-9 Over the last 2 weeks, how often have you been bothered by any of the following problems? 1. Little interest or pleasure in doing things: not at all 2. Feeling down, depressed, or hopeless: not at all 3. Trouble falling or staying asleep, or sleeping too much: more than half the days 4. Feeling tired or having little energy: more than half the days 5. Poor appetite or overeating: not at all 6. Feeling bad about yourself - or that you are a failure or have let yourself or your family down: not at all 7. Trouble concentrating on things, such as reading the newspaper or watching television: not at all 8. Moving or speaking so slowly that other people could have noticed. Or the opposite - being so fidgety or restless that you have been moving around a lot more than usual: not at all 9. Thoughts that you would be better off or of hurting yourself in some way: not at all Total score: 4 Depression Screening Interpretation: Negative Depression Screening Done: Yes 20261 - PHQ-9 Billing: Yes Source: Developed by Robin Mcclendonet B.W. Dipak, Merritt Bello and colleagues, with an educational nathanael from [employer]. Thrive Questionnaire Date Thrive assessed: 04/19/25 I am a: Patient What is your living situation today?: I have a steady place to live Within the past 12 months, did the food you bought not last and you didn't have the money to get more?: Never true Within the past 12 months, did you worry whether your food would run out before you got money to buy more?: Never true Do you have trouble paying for medicines?: No Do you have trouble getting transportation to medical appointments?: No Do you have trouble paying your heating and electricity bill?: No Do you have trouble taking care of your child, family member or friend?: No Do you have trouble with day-to-day activities such as bathing, preparing meals, shopping, managing finances, etc.?: No Are you currently unemployed and looking for a job?: No Are you interested in more education?: Yes Please select the resources that you would like help with: Education Currently or been in a relationship where the following occur: No concerns reported THRIVE Score: 0 AUDIT C Alcohol Use Questionnaire (AUDIT-C) 1. How often do you have a drink containing alcohol?: Never Total Score: 0 SURYA-7 AMB Questionnaire SURYA-7 Date SURYA - 7 assessed: 04/19/25 Feeling nervous, anxious, or on edge: 0 = Not at all Not being able to stop or control worryin = Several days Worrying too much about different things: 1 = Several days Trouble relaxin = Several days Being so restless that it is hard to sit still: 0 = Not at all Becoming easily annoyed or irritable: 0 = Not at all Feeling afraid as if something awful might happen: 0 = Not at all Total SURYA-7 score (0-4 normal; 5-9 mild; 10-14 moderate; 15-21 severe): 3 Source: Developed by Drs. Jad Baumann, Consuelo Quesada, Merritt Bello and colleagues, with an educational nathanael from [employer]. SURYA-7 Assessment Billing SURYA-7 Assessment Tool: SURYA-7 Assessment 36917 Review of Systems Const All systems reviewed & are unremarkable except as noted in HPI and below Denies chills and Denies fever(s) Eyes Reports no additional complaints ENT Reports no additional complaints Card Reports no additional complaints Resp Reports no additional complaints GI Reports no additional complaints Reports no additional complaints Musc Reports no additional complaints Skin/Breast Reports system reviewed and no additional complaints, except as documented Neuro Reports no additional complaints Psych Reports no additional complaints Endo Reports no additional complaints Jonatan/Lymph Reports as per HPI Aller/Immun Reports no additional complaints Physical exam (Primary Care) Vital Signs: Last Vital Signs Temp 98.1 F 04/19/25 16:30 Pulse 87 04/19/25 16:30 Resp 16 04/19/25 16:30 BP 124/70 04/19/25 16:30 Pulse Ox 98 04/19/25 16:30 Oxygen Delivery Method Room Air 04/19/25 16:30 BMI result Body Mass Index 26.4 Tobacco/Smoking Status: Tobacco use Status Tobacco use date assessed 04/19/25 04/19/25 16:33 Patient Tobacco Use Status Never used Tobacco 04/19/25 16:33 e-Cigarette/Vaping Use Never Used 04/19/25 16:33 PHQ-9: PHQ-9 Score PHQ-9: Total score 4 04/19/25 16:47 Depression Screening Interpretation: Negative Thrive Assessment: Date of Thrive Assessment Date Thrive assessed 04/19/25 04/19/25 16:33 Currently or been in a relationship where the following occur: No concerns reported Const Other: alert , oriented x 3 , no acute distress , normal gait HENMT Head: Yes normocephalic Ears: TM's normal bilaterally and EAC's normal General nose exam: Normal external nose present Face and sinus: Yes face symmetric Mouth: Normal oral and palatal mucosa present and moist mucous membranes Eyes Conjunctivae: conjunctival abnormal (pale) bilateral Pupils: Equal, round and reactive pupils present EOM: EOMs intact bilaterally Neck Neck: Yes full ROM, Yes no lymphadenopathy and Yes supple Chest Chest palpation & inspection: normal inspection of the chest Breast/axilla palpation: normal palpation of the breasts Resp Effort & Inspection: normal respiratory effort and able to speak in complete sentences Auscultation: clear to auscultation bilaterally Cardio Rate: regular rate Rhythm: regular rhythm Heart sounds: S1 normal heart sound present and S2 normal heart sound present GI Inspection: Yes normal to inspection Palpation (GI): Soft to palpation, nontender and no guarding Auscultation: normal bowel sounds General: Yes no CVA tenderness and Yes deferred (Currently being seen by Dr. Calderon) Back/Spine/Pelvis Back: no CVA tenderness and No back tenderness Skin General skin exam: no rashes or lesions noted Neuro General: gait normal, moves all extremities, Normal light touch and pain sensation, no focal motor deficits and CN's II-XI intact bilaterally Cranial nerves: Yes Equal, round and reactive pupils present Extrem General: Yes full ROM, Yes no joint enlargement, Yes no clubbing, cyanosis or edema and Yes normal gait Psych Appearance: grossly normal and well kempt Mental Status: mental status grossly normal Speech and movement: Normal speech and movement present Affect: normal affect Results Reviewed Results Reviewed: Name: Tonie Correa Age/Sex: 54/F : 1970 Unit#: [id number] Attend Dr: Rose Victoria MD Re03/02/25 Status: DEP REF Location: [facility] Disch: SPEC : [id number] ADDI: 03/02/25-1441 STATUS: COMP REQ : [id number] RECD: 03/02/25-[address]: Rose Victoria MD COMP: 03/03/25-1209 ENTERED: 03/02/25-[address] [facility] [address]: ORDERED: CBC Auto Diff, Path Review Test Result Flag Reference WBC 6.7 4.8-10.8 X10*3/uL RBC 4.52 4.20-5.50 X10*6/uL HGB 8.8 L 12.0-16.0 g/dl HCT 29.2 L 37.0-47.0 % MCV 64.6 L 80.0-98.0 fL MCH 19.5 L 27.0-33.0 pg MCHC 30.1 L 31.0-35.0 g/dl RDW 21.6 H 11.0-16.0 % PLT 343 160-400 X10*3/uL Neut Pct Auto 58.3 45-73 % ImGran Pct Auto 0.3 0.0-0.4 % Lymp Pct Auto 28.8 20-40 % Sargent Pct Auto 7.1 2-11 % Eos Pct Auto 4.5 H 0-4 % Baso Pct Auto 1.0 0-2 % NRBC Pct Auto 0.0 0.0-0.2 /100WBC ANC Neut Abs # 3.9 2.0-8.3 x10*3/uL ImGran Abs Auto 0.02 0.00-0.03 X10*3/uL Lymph Abs Auto 1.9 1.2-4.9 X10*3/uL Sargent Abs Auto 0.5 0.1-1.2 X10*3/uL Eos Abs Auto 0.3 0.0-0.4 X10*3/uL Baso Abs Auto 0.1 0.0-0.2 X10*3/uL NRBC Abs Auto 0.000 0.0-0.012 X10*3/uL Path Review SEE NOTE Microcytic anemia with preserved RBC count, occasional elliptocytes, and few schistocytes: consistent with the patient's known iron deficiency/blood loss; cannot excluded superimposed thalassemia and/or low grade microangiopathic hemolysis. Taisha Mendoza MD suly: Tonie Correa Age/Sex: 54/F : 1970 Unit#: [id number] Attend Dr: Rose Victoria MD Re03/02/25 Status: DEP REF Location: [facility] Disch: SPEC : [id number] ADDI: 03/02/25-144 STATUS: COMP REQ : [id number] RECD: 03/02/25-[address]: Rose Victoria MD COMP: 03/02/25-171 ENTERED: 03/02/25-[address] [facility] [address]: ORDERED: Met Prof Fast, IRON PROF, Ferritin, AST, ALT, Lipid Panel, Vitamin D 25- Free T4, TSH Rflx Test Result Flag Reference Sodium 139 135-145 mmol/L Potassium 4.0 3.3-5.1 mmol/L CL 111 H 96-108 mmol/L CO2 21 L 22-29 mmol/L Gap 11 L 12-20 BUN 11 9-16 mg/dL Creat 0.67 0.5-1.4 mg/dL eGFR > 60 Chronic Kidney Disease: Estimated GFR < 60 mL/min/1.73m2 Severe Kidney Disease: Estimated GFR < 15 mL/min/1.73m2 FBS 111 H 60-99 mg/dL A fasting glucose from 100-125 mg/dl is considered impaired (pre-diabetes). CA 9.2 8.4-10.2 mg/dL Iron 27 L 30-160 mcg/dL TIBC 417 228-428 mcg/dL Saturation 6 L 15-50 % UIBC 390 ug/dL Ferritin 4 L 10-250 ng/mL AST (GOT) 19 5-31 U/L ALT (GPT) 15 0-31 U/L Triglyceride 122 <150 mg/dL Desirable Triglyceride: less than 150 mg/dL Borderline High Triglyceride 150-199 mg/dL High Triglyceride: 200-499 mg/dL Very High Triglyceride: greater than or equal to 5OO mg/dL Cholesterol 194 <200 mg/dL Desirable Cholesterol: less than 200 mg/dL Borderline High Cholesterol: 200-239 mg/dL High Cholesterol: greater than 239 mg/dL LDL Calculated 127 H <100 mg/dL Desirable LDL: less than 100 mg/dL Near Optimal/Above Optimal LDL: 110-129 mg/dL Borderline High LDL: 130-159 mg/dL High LDL: 160-189 mg/dL Very High LDL: greater than or equal to 190 mg/dL HDL 43 >40 mg/dL Desirable HDL: greater than 40 mg/dL Note: This HDL assay may give artificially low results in patients with liver disease. Vitamin D 25-OH 25.0 L >30 ng/mL Health Based Reference Values* < 20 ng/mL Deficient 20-30 ng/mL Insufficient > 30 ng/mL Sufficient *Radha GALINDO. N Engl J Med. 2007;357:266-280 There is no well-established upper level of normal vitamin D levels. Some laboratories use 50 ng/mL as an upper limit of normal. However, toxicity is patient-dependent and may occur at any level. Careful correlation with the patient's presentation is necessary and, if there is concern for vitamin D toxicity, treatment should be considered irrespective of the serum level. Care must be taken in interpreting Vitamin D results from different laboratories and methodologies. Published data demonstrated that results from patients undergoing hemodialysis may show a negative bias when tested with various automated 25-OH vitamin D assays when compared to LC-MS/MS. When testing samples from patients whose predominant form of Vitamin D is Vitamin D2, such as patients receiving Vitamin D2 supplementation, results that are subtherapeutic should be confirmed with another method such as LC-MS/MS. Free T4 0.88 0.71-1.85 ng/dL TSH 5.03 H 0.32-4.0 uIU/mL ] Coding Level of Care Code Est Pt Prev Care 40-64y(68152) Diagnoses Annual visit for general adult medical examination with abnormal findings Z00.01 Iron deficiency anemia due to chronic blood loss D50.0 Iron deficiency anemia type: chronic blood loss Menorrhagia with irregular cycle N92.1 Insomnia, unspecified type G47.00 Insomnia type: unspecified Impaired fasting glucose R73.01 Vitamin D deficiency E55.9 Additional Codes SURYA-7 Assessment Billing - SURYA-7 Assessment Tool: SURYA-7 Assessment 07274 ([id number]) PHQ-9 - 46340 - PHQ-9 Billing: Yes ([id number]) Assessment & Plan Assessment & Plan (1) Annual visit for general adult medical examination with abnormal findings: Code(s): Z00.01 - Encounter for general adult medical examination with abnormal findings Plan: Latest fasting lab results reviewed with patient. Recommended dental visit every 6 months and regular eye exams, at least every 2 years. Take adequate calcium in diet and vitamin-D 3 at 2000 IU per cap once a day, in addition to weight-bearing exercises to help maintain good muscle tone and weight control. Instructed to do self-breast exam, and recommended to get yearly mammogram, currently up-to-date. She sees Dr. Calderon for her routine Pap and pelvic exam . Patient overdue to get colon cancer screening, Cologuard ordered last year was not done, patient does not want to get any screening at present time for colon cancer. Patient declined getting flu vaccine or COVID booster (2) Iron (Fe) deficiency anemia: Code(s): D50.9 - Iron deficiency anemia, unspecified Category: Medical Qualifiers: Iron deficiency anemia type: chronic blood loss Qualified Code(s): D50.0 - Iron deficiency anemia secondary to blood loss (chronic) Plan: Her latest hemoglobin is at 8.5, likely due to chronic menorrhagia, causing symptoms of weakness, depression, shortness of breath, pica, and palpitations. Oral iron has been ineffective due to poor compliance. Will refer her to Hematology to see if candidate for iron infusion (3) Menorrhagia with irregular cycle: Code(s): N92.1 - Excessive and frequent menstruation with irregular cycle Category: Medical Plan: The patient has persistent heavy bleeding despite being perimenopausal and having had a prior surgery for uterine polyps.. Advised to call and schedule follow-up with her property coordinator, for further evaluation management.. (4) Insomnia: Code(s): G47.00 - Insomnia, unspecified Qualifiers: Insomnia type: unspecified Qualified Code(s): G47.00 - Insomnia, unspecified Plan: Prescription sent for zolpidem 10 mg per tablet, to take initially half a tablet as needed for difficulty sleeping, effects discussed with patient which may include sleepwalking, and advised to receive at least 6-7 hours of sleep before taking the medication. Advised not to take any regular basis (5) Impaired fasting glucose: Code(s): R73.01 - Impaired fasting glucose Category: Medical Plan: Your previous fasting blood sugars were elevated above 100 mg/dL. Impaired glucose metabolism increases the risk for developing diabetes mellitus type 2, as well as heart attack and stroke later on. Lifestyle changes that promotes weight loss, healthy eating habits, and regular exercise are important, and can prevent the progression to diabetes (6) Vitamin D deficiency: Code(s): E55.9 - Vitamin D deficiency, unspecified Plan: Advised to start taking [id number] vitamin D3 at 2000 units daily Orders: Referrals Hematology & Oncology Referral D50.0 - Iron deficiency anemia secondary to blood loss (chronic), D50.9 - Iron deficiency anemia, unspecified Medications: New zolpidem 10 mg PO BEDTIME PRN 20 tabs 0RF insomnia Changed From fluocinonide 0.1% 1 appl topical BID 10 days 30 grams 0RF L25.9 - Unspecified contact dermatitis, unspecified cause To fluocinonide 0.1% 1 appl topical BID 30 grams 0RF 10 days NS L25.9 - Unspecified contact dermatitis, unspecified cause
--- OUTSIDE RECORDS SUMMARY | 2025-04-19 16:58 | XMS_ITS | Clinical Summary ---
Author Organization [facility] Address [address] [place] [id number] Phone Care Team Providers Care Utility Technician Name Role Phone Rose Victoria MD Primary [...] topic Medical Devices Not on file Insurance COUNTS INCLUDE 234 BEDS AT THE [facility] Member Subscriber Plan / Payer (Ef fective 2022-Present) Name:Tonie Correa Relation to Subscriber:Self Name:Tonie Correa Payer ID:Not on file Type:HMO Address: [place] [id number] [facility] AT THE [facility] COUNTS INCLUDE 234 BEDS AT THE [facility] Member Subscriber Plan / Payer (Ef fective 2022-) Name:Tonie Correa Relation to Subscriber:Self Name:Tonie Correa Payer ID:Not on file Type:HMO Address: [address] [place] [address] COUNTS INCLUDE 234 BEDS AT THE [facility] Member Subscriber Plan / Payer (Ef fective 2022-) Name:Tonie Correa Relation to Subscriber:Self Name:Tonie Correa Payer ID:Not on file Type:HMO Address: [address] [facility] Member Subscriber Plan / Payer (Ef fective 2022-Present) Name:Tonie Correa Relation to Subscriber:Self Name:Tonie Correa Payer ID:Not on file Type:O Address: [place] [id number] [facility] Care Teams Utility Technician Relationship Specialty Start Date End Date Rose Victoria MD [address] [place] [address] PCP - General Internal Medicine 06/21/22 Additional Source Comments The information contained in this document represents components of the legal health record. It is not the complete legal health record.[facility]
--- OUTSIDE RECORDS SUMMARY | 2025-04-19 16:58 | XMS_ITS | Patient Health Record ---
Author Organization [facility] Address [address] [place] [address] Care Team Providers Care Policy Change Clerk Name Role Phone DANIEL COLINDRES Primary Care Provider PIA Carpenter Unavailable [phone] Allergies No Known Allergies Reason For Referral No Information Medications Medication SIG (Take, Route, Frequency, Duration) Notes Start Date End Date Status [place]-3 Fish oil 2000 mg Active Fluocinonide 0.1 % 1 application Externally Once a day; Duration: 15 days 01/17/2023 Active Ferretts 325 (106 Fe) MG 1 tablet Orally Three times a Week Active Tacrolimus 0.1 % 1 application Externally Once a day; Duration: 30 days 01/17/2023 Active Vitamin D3 1.25 MG (07665 UT) 1 capsule Orally Active Tacrolimus 0.1 [...] W/U Status Risk Notes Problem Allergic rhinitis (07744794) Other allergic rhinitis (J30.89) Active confirmed Problem Eruption of skin (975675390) Rash and other nonspecific skin eruption (R21) Active confirmed Plan Of Treatment No Information Insurance Providers Payer Name Payer Address Payer Phone Subscriber Number Group Number Insured Name Patient Relationship to Insured Coverage Start Date Coverage End Date [facility] [address] [place] [id number] FINA ALBARADO Self - patient is the insured Medical (General) History Medical History History ICD Code low iron deficiency anemia Surgical History Surgery Date(Month/Year) Uterine polyp removal 10/2021
== END 2025-04-19 17:30 | disposition home or self-care (01) ==
LOC: HO.HMCC 15:55
PROVIDERS: PCP Internal Medicine; Visit Provider Internal Medicine
DX: Z00.01 Encounter for general adult medical examination with abnormal findings (principal); D50.0 Iron deficiency anemia secondary to blood loss (chronic); N92.1 Excessive and frequent menstruation with irregular cycle; G47.00 Insomnia, unspecified; R73.01 Impaired fasting glucose; E55.9 Vitamin D deficiency, unspecified

== ENCOUNTER → 2025-04-19 15:55 | Outpatient (BNVA) | payer OTHER, SELFPAY | PROVIDERS: PCP Internal Medicine; Visit Provider Internal Medicine | DX: Z00.01 Encounter for general adult medical examination with abnormal findings (principal); D50.0 Iron deficiency anemia secondary to blood loss (chronic); N92.1 Excessive and frequent menstruation with irregular cycle; G47.00 Insomnia, unspecified; R73.01 Impaired fasting glucose; E55.9 Vitamin D deficiency, unspecified | CPT/HCPCS: 96127 ==

== ENCOUNTER → 2025-05-17 09:10 | Outpatient (BNV) | payer OTHER, SELFPAY | PROVIDERS: PCP Internal Medicine; Referring Provider Internal Medicine; Visit Provider Internal Medicine Medical Oncology | DX: D50.9 Iron deficiency anemia, unspecified (principal) | CPT/HCPCS: 99204 ==